=== PATIENT | male | born 1990 | race African-American/Black ===

== ENCOUNTER 2017-04-23 04:29 | Inpatient (IN) | payer MEDICAID, OTHER ==
--- NOTE | 2017-04-23 06:21 | C.PDOC ---
History Of Present Illness 26 year old male presents to the ER after he was rushing down the stairs and slipped causing him to jump down the remaining 3 steps. Patient is now complaining of bilateral ankle pain, denies weakness or numbness. Time Seen by Provider: 04/23/17 06:05 Chief Complaint (Nursing): Lower Extremity Problem/Injury History Per: Patient History/Exam Limitations: no limitations Onset/Duration Of Symptoms: Hrs Current Symptoms Are (Timing): Still Present Recent travel outside of the [place]: No - Ankle/Foot Description Of Injury: Fell Past Medical History Reviewed: Historical Data, Nursing Documentation, Vital Signs Vital Signs: Last Vital Signs Temp 99.2 F 04/23/17 05:34 Pulse 72 04/23/17 05:34 Resp 18 04/23/17 05:34 BP 121/70 04/23/17 05:34 Pulse Ox 100 04/23/17 07:12 - Medical History PMH: No Chronic Diseases Surgical History: No Surg Hx Family History: States: Unknown Family Hx - Social History Hx Alcohol Use: No Hx Substance Use: No - Immunization History Hx Tetanus Toxoid Vaccination: No Hx Influenza Vaccination: No Hx Pneumococcal Vaccination: No Review Of Systems Musculoskeletal: Positive for: Foot Pain Neurological: Negative for: Weakness, Numbness Physical Exam - Physical Exam Appears: Non-toxic, No Acute Distress Skin: Normal Color, Warm, Dry Head: Atraumatic, Normacephalic Back: No Vertebral Tenderness (no lumbar midline tenderess) Extremity: Capillary Refill (<2 seconds), No Deformity, Other (Marked left abnd right lateral malleolus with swelling and tenderness. Swelling and tenderness to left medial heel with crepitus.) Extremity: Bilateral: Bony Point Tenderness (left and right lateral malleoli and heel), Unable To Bear Weight Pulses: Left Dorsalis Pedis: Normal, Right Dorsalis Pedis: Normal Neurological/Psych: Oriented x3, Normal Speech, Normal Motor, Normal Sensation, Other (No focal deficits) ED Course And Treatment O2 Sat by Pulse Oximetry: 100 (Room air) Pulse Ox Interpretation: Normal Medical Decision Making Medical Decision Making: Bilateral feet and bilateral ankle x-ray ordered. 650 pm xrays reviewed and pt appears to have bilateral calcaneal fractures. pt questioned again about mechanism; pt now sts he jumped from apporx 4-5 feet high and landed on both feet, did not hit head and has no back pain. ct bilateral feet ordered. Disposition - Disposition Disposition Time: 07:12 Condition: STABLE Forms: [facility] ([place]ese) - Clinical Impression Clinical Impression: Bilateral calcaneal fractures - Scribe Statement The provider has reviewed the documentation as recorded by the Scribe Olvin Chase All medical record entries made by the Scribe were at my direction and personally dictated by me. I have reviewed the chart and agree that the record accurately reflects my personal performance of the history, physical exam, medical decision making, and the department course for this patient. I have also personally directed, reviewed, and agree with the discharge instructions and disposition. Physician Patient Turnover Patient Signed Over To: Kenyatta Villarreal Handoff Comments: f/u le ct for calcaneal fx, podiatry consult, dispo accordingly
[2017-04-23 08:32] LABS: BASO # 0.1 K/uL (0.0-0.2); BASO % 0.4 % (0.0-2.0); EOS % 0.2 % (0.0-4.0); HEMATOCRIT 41.6 % (35.0-51.0); LYMPH # 0.8 K/uL (1.0-4.3); LYMPH % 5.6 % (20.0-40.0); MEAN CELL VOLUME 88.8 fL (80.0-94.0); MEAN CORPUSCULAR HEMOGLOBIN 30.1 pg (27.0-31.0); MEAN CORPUSCULAR HGB CONC 33.9 g/dL (33.0-37.0); MEAN PLATELET VOLUME 9.3 fL (7.2-11.7); MONO # 0.9 K/uL (0.0-0.8); MONO % 6.2 % (0.0-10.0); NRBC % 0.1 % (0.0-2.0); PLATELET COUNT 230 K/uL (130-400); RED CELL DISTRIBUTION WIDTH 12.9 % (11.5-14.5); WHITE BLOOD COUNT 14.6 K/uL (4.8-10.8)
--- NOTE | 2017-04-23 08:41 | CP.PCM.HP ---
<ChachoshelbiTamera tuckerTushar - Last Filed: 04/23/17 12:56> History of Present Illness - History of Present Illness History of Present Illness: CC: bilateral ankle pain HPI: Patient is a 26 year old with no past medical history, who presents to the ED with bilateral ankle pain and swelling. The patient reports he was with friends, rushing out of the house and as he was going down the stairs started to fall and landed on both feet. He reports he landed on both feet equally, and denies falling on any other body part. He reports he fell about 5-6 feet. His friends picked him him and took him back in the house. Patient took two Advil and then his friends drove him to the hospital. Currently the patient reports the pain is a 4-5/10 and that the Advil he took and the Tylenol he was given in the ED helped. Patient denies tingling and numbness in his feet, ankles, and lower extremities. Patient reports he can move his ankles, feet, and toes, but cannot stand due to the pain. Patient denies having chest pain, abdominal pain, shortness of breath, nausea, vomiting, fevers, headaches, dizziness, and leg pain above his ankles. PMHx: denies SurgHx: elbow fracture in kindergarten FamHx: father had "tooth cancer" SocHx: socially drinks (beer); smoke 3 cigarettes daily for 2 years; lives with friends in [place]; student Allergies: NKDA Medications: denies Present on Admission - Present on Admission Any Indicators Present on Admission: No Review of Systems - Constitutional Constitutional: absent: Fever, Headache - EENT Ears: absent: Dizziness - Cardiovascular Cardiovascular: absent: Chest Pain, Dyspnea, Lightheadedness, Palpitations - Respiratory Respiratory: absent: Cough, Dyspnea - Gastrointestinal Gastrointestinal: absent: Abdominal Pain, Constipation, Diarrhea, Nausea, Vomiting - Musculoskeletal Musculoskeletal: Joint Swelling (bilateral ankle), Limited Range of Motion ( cannot bear weight; can move toes and LE). absent: Numbness, Radiating Pain into Limb, Tingling - Integumentary Integumentary: Swelling Additional comments: Swelling bilateral ankles; no open lesions, unusual bruising - Neurological Neurological: Abnormal Gait (unable to bear weight). absent: Dizziness, Numbness, Headaches, Tingling, Weakness Past Patient History - Past Social History Smoking Status: Never Smoked - PSYCHIATRIC Hx Substance Use: No - SURGICAL HISTORY Hx Surgeries: No - ANESTHESIA Hx Anesthesia: No Meds Allergies/Adverse Reactions: Allergies Allergy/AdvReac Type Severity Reaction Status Date / Time No Known Allergies Allergy Unverified 04/23/17 05:36 Physical Exam - Constitutional Appears: No Acute Distress - Head Exam Head Exam: ATRAUMATIC, NORMAL INSPECTION - Eye Exam Eye Exam: EOMI, Normal appearance, PERRL - ENT Exam ENT Exam: Mucous Membranes Moist - Respiratory Exam Respiratory Exam: Clear to Auscultation Bilateral, NORMAL BREATHING PATTERN. absent: Rales, Rhonchi, Wheezes, Respiratory Distress - Cardiovascular Exam Cardiovascular Exam: REGULAR RHYTHM, +S1, +S2 - GI/Abdominal Exam GI & Abdominal Exam: Normal Bowel Sounds, Soft. absent: Distended, Firm, Guarding, Tenderness - Extremities Exam Extremities exam: Positive for: joint swelling, pedal edema, tenderness, pedal pulses present. Negative for: calf tenderness Additional comments: bilateral ankle swelling and ecchymosis noted; limited ROM of ankle 2/2 pain; Able to move toes; full ROM of LE - Neurological Exam Neurological exam: Alert, Oriented x3 - Psychiatric Exam Psychiatric exam: Normal Affect, Normal Mood - Skin Skin Exam: Dry, Normal Color, Warm Results - Vital Signs Recent Vital Signs: Last Vital Signs Temp 99.2 F 04/23/17 05:34 Pulse 72 04/23/17 05:34 Resp 18 04/23/17 05:34 BP 121/70 04/23/17 05:34 Pulse Ox 100 04/23/17 07:13 - Labs Result Diagrams: 04/23/17 08:25 04/23/17 08:25 Assessment & Plan (1) Bilateral calcaneal fractures Assessment and Plan: Foot xray: follow up official report Ankle xray: follow up official report LE CT: comminuted fractures of left and right calcanei, left more severe than right; surrounding soft tissue swelling. left than right ankle mortise intact Podiatry consulted- Dr. Naranjo; help appreciated * Plan tentatively for OR, as per podiatry Preop: * CXR: no acute infiltrates; nodular density of left upper lung field, could represent 1st rib artifact or tiny granuloma; suggests repeat in 2 months * EKG: follow up official report * PT 11.1; INR 1.0; PTT 26 * CBC: WBC 14.6; Hgb 14.1, Hct 41.6, Platelets 230 * CMP within normal limits Morphin 1mg IV Q6prn started for pain Status: Acute (2) Tobacco abuse Assessment and Plan: Discussed tobacco cessation at length. Nicoderm patch started. Status: Acute (3) Prophylactic measure Assessment and Plan: Anitcoagulation held at this time- plan to go to OR as per podiatry No SCDs- LE swelling Pepcid 20mg IV BID NPO- tentative plan for OR Fall precautions Status: Acute <Nasrin Ho V - Last Filed: 04/23/17 15:30> Results - Vital Signs Recent Vital Signs: Last Vital Signs Temp 98.2 F 04/23/17 11:30 Pulse 91 H 04/23/17 11:30 Resp 18 04/23/17 11:30 BP 105/59 L 04/23/17 11:30 Pulse Ox 98 04/23/17 11:30 - Labs Result Diagrams: 04/23/17 08:25 04/23/17 08:25 Labs: Laboratory Results - last 24 hr 04/23/17 04/23/17 04/23/17 08:25 08:25 08:25 WBC 14.6 H RBC 4.68 Hgb 14.1 Hct 41.6 MCV 88.8 MCH 30.1 MCHC 33.9 RDW 12.9 Plt Count 230 MPV 9.3 Neut % (Auto) 87.6 H Lymph % (Auto) 5.6 L [place] % (Auto) 6.2 Eos % (Auto) 0.2 Baso % (Auto) 0.4 Neut # 12.8 H Lymph # 0.8 L [place] # 0.9 H Eos # 0.0 Baso # 0.1 Neutrophils % (Manual) 89 H Band Neutrophils % 4 H Lymphocytes % (Manual) 2 L Reactive Lymphs % 1 H Monocytes % (Manual) 4 Platelet Estimate Normal RBC Morphology Normal PT 11.1 INR 1.0 APTT 26 Sodium 135 Potassium 3.6 Chloride 99 Carbon Dioxide 26 Anion Gap 13 BUN 7 L Creatinine 0.7 L Est GFR ( Amer) > 60 Est GFR (Non-Af Amer) > 60 Random Glucose 118 H Calcium 8.6 Total Bilirubin 0.8 AST 21 ALT 32 Alkaline Phosphatase 69 Total Protein 6.8 Albumin 4.4 Globulin 2.3 Albumin/Globulin Ratio 1.9 Attending/Attestation - Attestation I have personally seen and examined this patient.: Yes I have fully participated in the care of the patient.: Yes I have reviewed all pertinent clinical information: Yes Notes (Text): Patient seen, examined and case discussed with day-time resident. Patient see at bedside with two of his best friends. Patient's parents are in , he does not want to discuss his medical information with his parents who are attending his cousin's wedding starting today. Patient does not have any family in the local area. Patient defers to his best friend if anything emergent required. Patient denies acute complaints except for bilateral heel pain. On exam, when i checked his sensation and motor he exclaimed "fuck" making self-evident of his pain. Sensation intact, motor intact. Patient also reports he has been smoking for about 2 years about 3 cigarettes usually triggered by social function, advised strongly at bedside to quit. Denies other acute complaints. Discussed assessment and plan with day-time resident. Podiatry on the case. patient for possible OR later today/tonight or tomorrow per podiatry resident. Patient had EKG and Chest xray completed in the morning. Chest xray (04/23/17): no acute infiltrates. Nodular density left upper lung field could represent 1st rib artifact or tiny granuloma not excluded. Repeat radiographs in 2 months. EKG : NSR Discussed with ED Nurse, podiatry has made their rounds, NPO after midnight for surgery in the morning. Assessment/Plan (1) Bilateral calcaneal fractures Assessment and Plan: * Podiatry consulted- Dr. Naranjo; help appreciated * Foot xray: follow up official report * Ankle xray: follow up official report * LE CT: comminuted fractures of left and right calcanei, left more severe than right; surrounding soft tissue swelling. left than right ankle mortise intact * Plan tentatively for OR, as per podiatry Preop: * CXR: no acute infiltrates; nodular density of left upper lung field, could represent 1st rib artifact or tiny granuloma; suggests repeat in 2 months * EKG: follow up official report * PT 11.1; INR 1.0; PTT 26 * CBC: WBC 14.6; Hgb 14.1, Hct 41.6, Platelets 230 * CMP within normal limits * Morphine 1mg IV Q6prn started for pain * Hold chemical anticoagulation for possible OR Status: Acute (2) Tobacco abuse Assessment and Plan: * Discussed tobacco cessation at length. * Nicoderm patch started. Status: Acute (3) Leukocytosis Assessment and Plan: * Blood cultures X2 * UA and Urine culture * Likely inflammatory reaction given recent fractures Status: Acute (4) Prophylactic measure Assessment and Plan: * Anticoagulation held at this time- plan to go to OR as per podiatry * No SCDs- LE swelling * Pepcid 20mg IV BID * NPO- tentative plan for OR * Fall precautions Status: Acute
[2017-04-23 08:54] LABS: ALB/GLOB RATIO 1.9 (1.0-2.1); ALKALINE PHOSPHATASE 69 U/L (38-126); ALT/SGPT 32 U/L (21-72); AST/SGOT 21 U/L (17-59); BILIRUBIN,TOTAL 0.8 mg/dL (0.2-1.3); BLOOD UREA NITROGEN 7 mg/dL (9-20); CALCIUM 8.6 mg/dl (8.6-10.4); CARBON DIOXIDE 26 mmol/L (22-30); CHLORIDE 99 mmol/L (98-107); GFR AFRICAN-AMERICAN > 60; GLUCOSE,RANDOM 118 mg/dL (75-110); POTASSIUM 3.6 mmol/L (3.6-5.2); SODIUM 135 mmol/L (132-148); TOTAL PROTEIN 6.8 g/dL (6.3-8.3)
[2017-04-23 09:12] LABS: NEUTROPHIL 89 % (50-75); REACTIVE LYMPHOCYTES 1 % (0-0); TOTAL CELLS COUNTED 100
--- NOTE | 2017-04-23 10:50 | CT ---
PROCEDURE: CT scan of the right and left calcanei 04/23/2017 HISTORY: Evaluate for bilateral calcaneal fx COMPARISON: Comparison made with radiographs of both ankles and feet earlier same day. TECHNIQUE: Contiguous axial images of the both the right and left calcanei obtained. Coronal and sagittal reformats were generated. This CT exam was performed using one or more of the following dose reduction techniques: Automated exposure control, adjustment of the mA and/or kV according to patient size, and/or use of iterative reconstruction technique. Radiation dose. Total DLP = 573.34 mGy FINDINGS: BONES: Comminuted fractures of both calcanei a left more severe than the right. . Small intra-articular fracture fragments seen between the right talocalcaneal joint. . Right ankle mortise is intact. Made of a small Surrounding soft tissue swelling. No other acute displaced fracture nor dislocation. . . Joint spaces are relatively preserved. Incidental note made of a small bone island in the superomedial aspect of the left talus. LEFT HIP JOINT: Unremarkable. No dislocation. No degenerative changes. SOFT TISSUES: Unremarkable. IMPRESSION: There are comminuted fractures of the left and right calcanei on former more severe than latter as above. . Surrounding soft tissue swelling. No other fractures. Left than right ankle mortise intact.
[2017-04-23] MEDS ORDERED: Oxycodone/Acetaminophen 5/325 mg Tab PO STA (10:55)
[2017-04-23] MEDS ORDERED: Oxycodone/Acetaminophen 5/325 mg Tab ONE (11:08)
--- NOTE | 2017-04-23 11:18 | CP.PCM.CON ---
History of Present Illness - History of Present Illness History of Present Illness: 26 y/o male seen in ED after consultation for bilateral foot and ankle pain. Pt states he was rushing down a flight of stairs and thinks that he missed one, thus falling down the last few stairs and landing straight down on both feet. Pt states he immediately was unable to walk and felt extreme pain in both feet. Pt admits to taking Advil and then coming in to the ED. Pt denies F/C/N/V/CP/ SOB. Pt denies numbness or tingling in both feet but admits to a mild burning sensation in the left foot. Pt says the Advil and Tylenol he received in the emergency room have been helping with the pain but it still hurts at this time. PMH: denies PSH: All: NKDA Social: social EtOH; approx 3 cigs/day Review of Systems - Review of Systems All systems: reviewed and no additional remarkable complaints except (per HPI) Past Patient History - Past Social History Smoking Status: Never Smoked - PSYCHIATRIC Hx Substance Use: No - SURGICAL HISTORY Hx Surgeries: No - ANESTHESIA Hx Anesthesia: No Meds Allergies/Adverse Reactions: Allergies Allergy/AdvReac Type Severity Reaction Status Date / Time No Known Allergies Allergy Unverified 04/23/17 05:36 - Medications Medications: Current Medications Famotidine (Pepcid) 20 mg IVP Q12 HERMINIO Last Admin: 04/23/17 10:15 Dose: 20 mg Morphine Sulfate (Morphine) 1 mg IV Q6 PRN PRN Reason: Pain, severe (8-10) Nicotine (Nicoderm Cq) 1 patch TD DAILY HERMINIO Physical Exam - Constitutional Appears: Well, Non-toxic, No Acute Distress - Extremities Exam Additional comments: Lower extremity focused examination: Vasc: Dp/PT pulses palpable 2/4 B/L. Temperature gradient is warm to warm B/L. CFT < 3 sec to all digits. Pedal hair present. Non-pitting pedal edema noted to perimalleolar region and extending to dorsum of midfoot B/L. Derm: No fracture blisters, no ecchymosis, no open lesions, no clinical suspicion of infection Neuro: Protective sensation grossly intact B/L Ortho: Pt able to perform mild active ankle circumduction. Significant tenderness elicited upon active and passive ankle dorsiflexion and plantarflexion. Significant tenderness to palpation of bilateral heels. Pt able to wiggle toes without difficulty. - Neurological Exam Neurological exam: Alert, Oriented x3 - Psychiatric Exam Psychiatric exam: Normal Affect, Normal Mood Results - Vital Signs Recent Vital Signs: Last Vital Signs Temp 99.2 F 04/23/17 05:34 Pulse 72 04/23/17 05:34 Resp 18 04/23/17 05:34 BP 121/70 04/23/17 05:34 Pulse Ox 100 04/23/17 07:13 - Labs Result Diagrams: 04/23/17 08:25 04/23/17 08:25 Labs: Laboratory Results - last 24 hr 04/23/17 04/23/17 04/23/17 08:25 08:25 08:25 WBC 14.6 H RBC 4.68 Hgb 14.1 Hct 41.6 MCV 88.8 MCH 30.1 MCHC 33.9 RDW 12.9 Plt Count 230 MPV 9.3 Neut % (Auto) 87.6 H Lymph % (Auto) 5.6 L [place] % (Auto) 6.2 Eos % (Auto) 0.2 Baso % (Auto) 0.4 Neut # 12.8 H Lymph # 0.8 L [place] # 0.9 H Eos # 0.0 Baso # 0.1 Neutrophils % (Manual) 89 H Band Neutrophils % 4 H Lymphocytes % (Manual) 2 L Reactive Lymphs % 1 H Monocytes % (Manual) 4 Platelet Estimate Normal RBC Morphology Normal PT 11.1 INR 1.0 APTT 26 Sodium 135 Potassium 3.6 Chloride 99 Carbon Dioxide 26 Anion Gap 13 BUN 7 L Creatinine 0.7 L Est GFR ( Amer) > 60 Est GFR (Non-Af Amer) > 60 Random Glucose 118 H Calcium 8.6 Total Bilirubin 0.8 AST 21 ALT 32 Alkaline Phosphatase 69 Total Protein 6.8 Albumin 4.4 Globulin 2.3 Albumin/Globulin Ratio 1.9 Assessment & Plan - Assessment and Plan (Free Text) Assessment: 26 y/o male with bilateral comminuted calcaneal fractures secondary to trauma Plan: Pt seen and evaluated in ED Chart and vitals reviewed - afebrile, WBC 14.6 Discussed plan in detail with attending Dr. Naranjo X-rays of bilateral feet reviewed, reveal bilateral radiolucencies in calcaneus bone consistent with fracture Lower extremity CT reviewed- reveals bilateral comminuted calcaneal fractures, left worse than right Pt placed in bilateral posterior splints with Moore compressive dressing Pt informed of the severity of his injuries and the need for surgical intervention All risks and benefits of surgery explained and all questions and concerns addressed with patient Pt advised to keep splints clean, dry and intact and remain non weight-bearing to both lower extremities Pt to be admitted under his PCP, Dr. Paige Ryder Pt to go to OR tentatively Monday and for repair of bilateral fractures Medical optimization appreciated at this time Podiatry will continue to follow patient while on floors Pt's pain controlled with Percocet and Morphine prn per ED attending Thank you for this consult
--- NOTE | 2017-04-23 12:58 | RAD ---
PROCEDURE: CHEST RADIOGRAPH, 1 VIEW HISTORY: pre-op COMPARISON: None available. FINDINGS: LUNGS: No acute infiltrates. There is a vague nodular density seen in the upper lobe overlying the right anterior 1st rib which could represent 1st rib artifact. Possibility of a tiny granuloma not excluded. Follow-up radiographs at 2 month interval could be performed to assess stability. . Questionable minimal linear atelectasis and or scarring left mid to upper lung field Minimal linear left lung base associated with minimal subjacent tenting of the left lateral hemidiaphragm PLEURA: No pneumothorax or pleural fluid seen. CARDIOVASCULAR: Normal. OSSEOUS STRUCTURES: No significant abnormalities. VISUALIZED UPPER ABDOMEN: Normal. OTHER FINDINGS: None. IMPRESSION: No acute infiltrates. Nodular density left upper lung field could represent 1st rib artifact or a tiny granuloma not excluded. Repeat radiographs in 2 months could be performed to assess stability.
--- NOTE | 2017-04-23 13:10 | RAD ---
PROCEDURE: Bilateral ankles dated 04/23/2017. HISTORY: Deformity. COMPARISON: Comparison made with concurrent radiographs of the right and left feet TECHNIQUE: Three views of the right and left ankles performed. FINDINGS: The current study reveals comminuted fractures of the right and left calcanei and with surrounding soft tissue swelling. Right and left ankle mortise appear intact. No other fractures are identified so far as can be seen. IMPRESSION: Comminuted fractures of the right and left calcanei on with surrounding soft tissue swelling.
--- NOTE | 2017-04-23 13:12 | RAD ---
PROCEDURE: Bilateral feet radiographs 04/23/2017 Three standard views of the right and left feet performed. HISTORY: Heel pain. COMPARISON: Correlation made with concurrent radiographs of the right and left ankles. FINDINGS: The current study re- demonstrates comminuted fractures of the left and right calcanei with surrounding soft tissue swelling. No other fractures are identified. IMPRESSION: Comminuted fractures of the right and left calcanei E with surrounding soft tissue swelling.
[2017-04-23 15:57] LABS: URINE BILIRUBIN NEGATIVE (NEGATIVE); URINE BLOOD NEGATIVE (NEGATIVE); URINE COLOR Straw (YELLOW); URINE GLUCOSE (UA) 2+ mg/dL (Normal); URINE KETONE NEGATIVE (NEGATIVE); URINE LEUKOCYTE ESTERASE NEG Leu/uL (Negative); URINE PROTEIN NEGATIVE (NEGATIVE); URINE UROBILINOGEN NORMAL mg/dL (0.2-1.0)
--- NOTE | 2017-04-23 17:04 | CP.PCM.CON ---
Past Patient History - Past Social History Smoking Status: Never Smoked - PSYCHIATRIC Hx Substance Use: No - SURGICAL HISTORY Hx Surgeries: No - ANESTHESIA Hx Anesthesia: No Meds Allergies/Adverse Reactions: Allergies Allergy/AdvReac Type Severity Reaction Status Date / Time No Known Allergies Allergy Unverified 04/23/17 05:36 - Medications Medications: Current Medications Famotidine (Pepcid) 20 mg IVP Q12 HERMINIO Last Admin: 04/23/17 10:15 Dose: 20 mg Morphine Sulfate (Morphine) 1 mg IV Q6 PRN PRN Reason: Pain, severe (8-10) Last Admin: 04/23/17 11:37 Dose: 1 mg Nicotine (Nicoderm Cq) 1 patch TD DAILY HERMINIO Physical Exam - Constitutional Appears: Well - Head Exam Head Exam: ATRAUMATIC, NORMAL INSPECTION, NORMOCEPHALIC - Eye Exam Eye Exam: EOMI, Normal appearance, PERRL Pupil Exam: NORMAL ACCOMODATION, PERRL - ENT Exam ENT Exam: Mucous Membranes Moist, Normal Exam - Neck Exam Neck exam: Positive for: Normal Inspection - Respiratory Exam Respiratory Exam: Decreased Breath Sounds - Cardiovascular Exam Cardiovascular Exam: REGULAR RHYTHM, +S1, +S2 - GI/Abdominal Exam GI & Abdominal Exam: Diminished Bowel Sounds, Soft - Rectal Exam Rectal Exam: Deferred Results - Vital Signs Recent Vital Signs: Last Vital Signs Temp 98.2 F 04/23/17 16:16 Pulse 68 04/23/17 16:16 Resp 18 04/23/17 16:16 BP 119/72 04/23/17 16:16 Pulse Ox 99 04/23/17 16:16 - Labs Result Diagrams: 04/23/17 08:25 04/23/17 08:25 Labs: Laboratory Results - last 24 hr 04/23/17 04/23/17 04/23/17 08:25 08:25 08:25 WBC 14.6 H RBC 4.68 Hgb 14.1 Hct 41.6 MCV 88.8 MCH 30.1 MCHC 33.9 RDW 12.9 Plt Count 230 MPV 9.3 Neut % (Auto) 87.6 H Lymph % (Auto) 5.6 L [place] % (Auto) 6.2 Eos % (Auto) 0.2 Baso % (Auto) 0.4 Neut # 12.8 H Lymph # 0.8 L [place] # 0.9 H Eos # 0.0 Baso # 0.1 Neutrophils % (Manual) 89 H Band Neutrophils % 4 H Lymphocytes % (Manual) 2 L Reactive Lymphs % 1 H Monocytes % (Manual) 4 Platelet Estimate Normal RBC Morphology Normal PT 11.1 INR 1.0 APTT 26 Sodium 135 Potassium 3.6 Chloride 99 Carbon Dioxide 26 Anion Gap 13 BUN 7 L Creatinine 0.7 L Est GFR ( Amer) > 60 Est GFR (Non-Af Amer) > 60 Random Glucose 118 H Calcium 8.6 Total Bilirubin 0.8 AST 21 ALT 32 Alkaline Phosphatase 69 Total Protein 6.8 Albumin 4.4 Globulin 2.3 Albumin/Globulin Ratio 1.9 Urine Color Urine Clarity Urine pH Ur Specific [place] Urine Protein Urine Glucose (UA) Urine Ketones Urine Blood Urine Nitrate Urine Bilirubin Urine Urobilinogen Ur Leukocyte Esterase 04/23/17 15:41 WBC RBC Hgb Hct MCV MCH MCHC RDW Plt Count MPV Neut % (Auto) Lymph % (Auto) [place] % (Auto) Eos % (Auto) Baso % (Auto) Neut # Lymph # [place] # Eos # Baso # Neutrophils % (Manual) Band Neutrophils % Lymphocytes % (Manual) Reactive Lymphs % Monocytes % (Manual) Platelet Estimate RBC Morphology PT INR APTT Sodium Potassium Chloride Carbon Dioxide Anion Gap BUN Creatinine Est GFR ( Amer) Est GFR (Non-Af Amer) Random Glucose Calcium Total Bilirubin AST ALT Alkaline Phosphatase Total Protein Albumin Globulin Albumin/Globulin Ratio Urine Color Straw Urine Clarity Clear Urine pH 7.0 Ur Specific [place] 1.008 Urine Protein Negative Urine Glucose (UA) 2+ H Urine Ketones Negative Urine Blood Negative Urine Nitrate Negative Urine Bilirubin Negative Urine Urobilinogen Normal Ur Leukocyte Esterase Neg
[2017-04-24 08:15] LABS: BASO % 0.4 % (0.0-2.0); EOS % 0.4 % (0.0-4.0); HEMATOCRIT 39.5 % (35.0-51.0); LYMPH # 0.7 K/uL (1.0-4.3); LYMPH % 7.8 % (20.0-40.0); MEAN CORPUSCULAR HGB CONC 34.9 g/dL (33.0-37.0); MEAN PLATELET VOLUME 9.5 fL (7.2-11.7); MONO # 1.2 K/uL (0.0-0.8); MONO % 13.3 % (0.0-10.0); PLATELET COUNT 213 K/uL (130-400); RED CELL DISTRIBUTION WIDTH 12.7 % (11.5-14.5); WHITE BLOOD COUNT 9.4 K/uL (4.8-10.8)
[2017-04-24] MEDS ORDERED: Enoxaparin 40 mg Syringe SC ONE (08:40)
[2017-04-24 08:43] LABS: ALB/GLOB RATIO 1.2 (1.0-2.1); ALKALINE PHOSPHATASE 70 U/L (38-126); ALT/SGPT 28 U/L (21-72); AST/SGOT 20 U/L (17-59); BLOOD UREA NITROGEN 7 mg/dL (9-20); CALCIUM 8.5 mg/dl (8.6-10.4); CARBON DIOXIDE 25 mmol/L (22-30); CHLORIDE 97 mmol/L (98-107); GFR AFRICAN-AMERICAN > 60; GLUCOSE,RANDOM 126 mg/dL (75-110); POTASSIUM 3.9 mmol/L (3.6-5.2); SODIUM 132 mmol/L (132-148); TOTAL PROTEIN 7.6 g/dL (6.3-8.3)
[2017-04-24 08:55] LABS: EOSINOPHIL 3 % (0-4); NEUTROPHIL 75 % (50-75); TOTAL CELLS COUNTED 100
--- NOTE | 2017-04-24 09:52 | CP.PCM.PN ---
<Tamera Le - Last Filed: 04/24/17 13:40> Subjective - Date & Time of Evaluation Date of Evaluation: 04/24/17 Time of Evaluation: 09:52 - Subjective Subjective: Medicine Progress Note for Dr. Ryder Patient was seen and examined at bedside in no acute distress. Patient's friend , Bello, at bedside. Patient reports he has a lot of pain in his lower extremities bilaterally. He reports his casts are uncomfortable and makes the pain worse. Patient denies having chest pain, shortness of breath, abdominal pain, nausea, vomiting, fevers, and headaches. Patient is NPO for possible OR today. Objective - Vital Signs/Intake and Output Vital Signs (last 24 hours): Temp Pulse Resp BP Pulse Ox 98.5 F 82 20 144/80 98 04/24/17 00:00 04/24/17 00:00 04/24/17 00:00 04/24/17 00:00 04/24/17 00:00 - Medications Medications: Current Medications Docusate Sodium (Colace) 100 mg PO BID [facility] Famotidine (Pepcid) 20 mg IVP Q12 [facility] Last Admin: 04/23/17 22:04 Dose: 20 mg Ketorolac Tromethamine (Toradol) 15 mg IVP Q6 PRN PRN Reason: Pain, moderate (4-7) Ketorolac Tromethamine (Toradol) 30 mg IVP Q6 PRN PRN Reason: Pain, severe (8-10) Nicotine (Nicoderm Cq) 1 patch TD DAILY [facility] Last Admin: 04/23/17 22:03 Dose: Not Given Pneumococcal Polyvalent Vaccine (Pneumovax 23 Vaccine) 0.5 ml IM .ONCE ONE Stop: 04/25/17 10:01 - Labs Labs: 04/24/17 08:00 04/24/17 08:00 PT 11.1 SECONDS (9.7-12.2) 04/23/17 08:25 INR 1.0 04/23/17 08:25 APTT 26 SECONDS (21-34) 04/23/17 08:25 - Constitutional Appears: No Acute Distress - Head Exam Head Exam: ATRAUMATIC, NORMAL INSPECTION - Eye Exam Eye Exam: EOMI, Normal appearance - ENT Exam ENT Exam: Mucous Membranes Moist - Respiratory Exam Respiratory Exam: Clear to Ausculation Bilateral, NORMAL BREATHING PATTERN. absent: Rales, Rhonchi, Wheezes, Respiratory Distress - Cardiovascular Exam Cardiovascular Exam: REGULAR RHYTHM, +S1, +S2 - GI/Abdominal Exam GI & Abdominal Exam: Soft, Normal Bowel Sounds. absent: Distended, Firm, Guarding, Tenderness - Extremities Exam Extremities Exam: Tenderness (B/L; casts with michelle wrap from knee down to toes b/ l. Toes exposed; patient able to move toes; sensation intact b/l) - Neurological Exam Neurological Exam: Alert, Awake, Oriented x3 - Psychiatric Exam Psychiatric exam: Normal Affect, Normal Mood - Skin Skin Exam: Dry, Intact, Normal Color, Warm Assessment and Plan (1) Bilateral calcaneal fractures Status: Acute (2) Tobacco abuse Status: Acute (3) Prophylactic measure Status: Acute - Assessment and Plan (Free Text) Plan: Assessment & Plan (1) Bilateral calcaneal fractures Assessment and Plan: Foot xray: follow up official report Ankle xray: follow up official report Given one dose of Lovenox on 04/24/17. LE CT: comminuted fractures of left and right calcanei, left more severe than right; surrounding soft tissue swelling. left than right ankle mortise intact Podiatry consulted- Dr. Naranjo; help appreciated * Patient is scheduled to go to OR on Monday for one and for the other. * 04/24- On regular diet, but NPO after MN Preop: * CXR: no acute infiltrates; nodular density of left upper lung field, could represent 1st rib artifact or tiny granuloma; suggests repeat in 2 months * EKG: follow up official report * PT 11.1; INR 1.0; PTT 26 * CBC: WBC 14.6; Hgb 14.1, Hct 41.6, Platelets 230 * CMP within normal limits Pain Management: * Discontinued Morphine 1mg IV Q6prn started for pain * Tylenol 650mg PO Q6 PRN (mild pain) * Toradol 15mg Q6 PRN (moderate pain) * Toradol 30mg Q6 PRN (severe pain) Status: Acute (2) Tobacco abuse Assessment and Plan: * Discussed tobacco cessation at length. * Nicoderm patch started. Status: Acute (3) Prophylactic measure Assessment and Plan: * Anitcoagulation held at this time- plan to go to OR as per podiatry * Was given one dose of Lovenox on 04/24/17 * No SCDs- LE swelling * Pepcid 20mg IV BID * NPO after MN- OR on Monday04/24/17 * Fall precautions Status: Acute <Vern Ryder - Last Filed: 04/24/17 20:47> Objective - Vital Signs/Intake and Output Vital Signs (last 24 hours): Temp Pulse Resp BP Pulse Ox 98.0 F 90 20 143/91 H 99 04/24/17 15:00 04/24/17 15:00 04/24/17 15:00 04/24/17 15:00 04/24/17 15:00 Intake and Output: 04/24/17 04/25/17 18:59 06:59 Intake Total 480 Output Total 1000 Balance -520 - Medications Medications: Current Medications Acetaminophen (Tylenol 325mg Tab) 650 mg PO Q6 PRN PRN Reason: Pain, Mild (1-3) Docusate Sodium (Colace) 100 mg PO BID [facility] Last Admin: 04/24/17 17:30 Dose: 100 mg Famotidine (Pepcid) 20 mg IVP Q12 [facility] Last Admin: 04/24/17 10:27 Dose: 20 mg Ketorolac Tromethamine (Toradol) 15 mg IVP Q6 PRN PRN Reason: Pain, moderate (4-7) Last Admin: 04/24/17 20:22 Dose: 15 mg Ketorolac Tromethamine (Toradol) 30 mg IVP Q6 PRN PRN Reason: Pain, severe (8-10) Nicotine (Nicoderm Cq) 1 patch TD DAILY [facility] Last Admin: 04/24/17 10:28 Dose: Not Given Pneumococcal Polyvalent Vaccine (Pneumovax 23 Vaccine) 0.5 ml IM .ONCE ONE Stop: 04/25/17 10:01 - Labs Labs: 04/24/17 08:00 04/24/17 08:00 PT 11.1 SECONDS (9.7-12.2) 04/23/17 08:25 INR 1.0 04/23/17 08:25 APTT 26 SECONDS (21-34) 04/23/17 08:25 Attending/Attestation - Attestation I have personally seen and examined this patient.: Yes I have fully participated in the care of the patient.: Yes I have reviewed all pertinent clinical information, including history, physical exam and plan: Yes Notes (Text): 04/24/17 20:47 Patient was seen and examined at 8:30 AM 04/24/17 360 A Exam, Assessment and Plan were thoroughly gone over with the resident. Vern Ryder D.O.
--- NOTE | 2017-04-24 17:59 | CARD ---
APPROVED REPORT EKG Measurement Heart [id number] <Conclusion> Normal sinus rhythm Biatrial enlargement Abnormal ECG
--- NOTE | 2017-04-24 19:13 | CP.PCM.PN ---
Subjective - Date & Time of Evaluation Date of Evaluation: 04/24/17 Time of Evaluation: 16:10 - Subjective Subjective: 26 y/o male seen at bedside for bilateral calcaneal fractures, with attending, Dr. Naranjo present. Pt is in no acute distress and states pain is well contolled bilaterally. Pt states he is compliant with strict bedrest and is making no attempts to ambulate due to extent of injuries. Pain is will controlled at this time. Pt denies F/C/N/V/CP/SOB. Pt denies numbness or tingling in both feet. Pt is in good spirits during interview. Objective - Vital Signs/Intake and Output Vital Signs (last 24 hours): Temp Pulse Resp BP Pulse Ox 98.0 F 90 20 143/91 H 99 04/24/17 15:00 04/24/17 15:00 04/24/17 15:00 04/24/17 15:00 04/24/17 15:00 Intake and Output: 04/24/17 04/25/17 18:59 06:59 Intake Total 480 Output Total 1000 Balance -520 - Medications Medications: Current Medications Acetaminophen (Tylenol 325mg Tab) 650 mg PO Q6 PRN PRN Reason: Pain, Mild (1-3) Docusate Sodium (Colace) 100 mg PO BID [facility] Last Admin: 04/24/17 17:30 Dose: 100 mg Famotidine (Pepcid) 20 mg IVP Q12 [facility] Last Admin: 04/24/17 10:27 Dose: 20 mg Ketorolac Tromethamine (Toradol) 15 mg IVP Q6 PRN PRN Reason: Pain, moderate (4-7) Last Admin: 04/24/17 14:10 Dose: 15 mg Ketorolac Tromethamine (Toradol) 30 mg IVP Q6 PRN PRN Reason: Pain, severe (8-10) Nicotine (Nicoderm Cq) 1 patch TD DAILY [facility] Last Admin: 04/24/17 10:28 Dose: Not Given Pneumococcal Polyvalent Vaccine (Pneumovax 23 Vaccine) 0.5 ml IM .ONCE ONE Stop: 04/25/17 10:01 - Labs Labs: 04/24/17 08:00 04/24/17 08:00 PT 11.1 SECONDS (9.7-12.2) 11/26/17 08:25 INR 1.0 04/23/17 08:25 APTT 26 SECONDS (21-34) 04/23/17 08:25 - Constitutional Appears: Well, Non-toxic, No Acute Distress - Extremities Exam Additional comments: Lower extremity focused examination: Posterior splint intact bilaterally, absent sanginous strikethough. Neuro-vascular status intact to level of digits bilaterally. Pt able to move toes to verbal prompting. - Neurological Exam Neurological Exam: Alert, Awake, Oriented x3 - Psychiatric Exam Psychiatric exam: Normal Affect, Normal Mood Assessment and Plan - Assessment and Plan (Free Text) Assessment: 26 y/o male with bilateral comminuted calcaneal fractures secondary to trauma Plan: Pt seen and evaluated, with attending Dr. Naranjo present. Discussed CT findings and extent of traumatic damage bilaterally. Left side noted to be more comminuted and with more intra-articular damage. Discussed with patient increased likelihood of post-traumatic arthritis bilaterally, left increased likelihood over right. Discussed conservative and surgical treatment options. Pt opted for surgical intervention. Medical decision made to stage the procedure over 2 operative visits, 1st stage to address left fracture, with 2nd stage and addressing of right to occur in 2+ days time. Pt agrees with surgical plan and is aware or risks, benefits, and complications which were explained to him. Pt has no reservations, and wished to proceed with indicated surgical intervention. Pt to be NPO this evening at midnight To OR tomorrow morning(04/25/17) for left calcaneal ORIF. Pt to remain on bedrest, with posterior splints intact. - To address physical therapy plan post-operatively. Podiatry will continue to follow while inhouse.
[2017-04-25 06:12] LABS: BASO % 0.6 % (0.0-2.0); EOS # 0.1 K/uL (0.0-0.7); EOS % 1.2 % (0.0-4.0); LYMPH # 1.1 K/uL (1.0-4.3); LYMPH % 13.3 % (20.0-40.0); MEAN CELL VOLUME 89.7 fL (80.0-94.0); MEAN CORPUSCULAR HEMOGLOBIN 30.6 pg (27.0-31.0); MEAN CORPUSCULAR HGB CONC 34.2 g/dL (33.0-37.0); MEAN PLATELET VOLUME 9.7 fL (7.2-11.7); MONO # 0.9 K/uL (0.0-0.8); MONO % 11.2 % (0.0-10.0); RED CELL DISTRIBUTION WIDTH 12.6 % (11.5-14.5); WHITE BLOOD COUNT 8.1 K/uL (4.8-10.8)
[2017-04-25 06:29] LABS: ALB/GLOB RATIO 1.7 (1.0-2.1); ALKALINE PHOSPHATASE 62 U/L (38-126); ALT/SGPT 28 U/L (21-72); AST/SGOT 19 U/L (17-59); BILIRUBIN,TOTAL 1.2 mg/dL (0.2-1.3); BLOOD UREA NITROGEN 8 mg/dL (9-20); CALCIUM 8.6 mg/dl (8.6-10.4); CARBON DIOXIDE 26 mmol/L (22-30); CHLORIDE 98 mmol/L (98-107); GFR AFRICAN-AMERICAN > 60; GLUCOSE,RANDOM 112 mg/dL (75-110); SODIUM 133 mmol/L (132-148); TOTAL PROTEIN 6.8 g/dL (6.3-8.3)
[2017-04-25] MEDS ORDERED: Midazolam 2 MG/2 ML VIAL ONE (07:41)
[2017-04-25] MEDS ORDERED: Propofol 10 mg/ml Inj (20 ML) ONE (07:41)
[2017-04-25] MEDS ORDERED: ceFAZolin IV 1 gm in Dextrose 1 GM/50 ML BAG IVPB ONE (07:43)
[2017-04-25] MEDS ORDERED: Bupivacaine 0.5% Inj(30mL) ONE ×2 (07:44→13:10)
[2017-04-25] MEDS ORDERED: Lactated Ringer's 1,000 ML IV ONE ×3 (08:03→11:45)
[2017-04-25] MEDS ORDERED: Phenylephrine 10 mg/ml Inj ONE (09:05)
[2017-04-25] MEDS ORDERED: Rocuronium 10 mg/ml (5 ml) ONE ×2 (09:06→11:54)
--- NOTE | 2017-04-25 09:50 | CP.PCM.PN ---
<Tamera Le - Last Filed: 04/25/17 13:48> Subjective - Date & Time of Evaluation Date of Evaluation: 04/25/17 Time of Evaluation: 09:47 - Subjective Subjective: Medicine Progress note for Dr. Ryder Patient was seen and examined at bedside in no acute distress. Patient was getting ready for transfer to the OR. Patient the pain is manageable if he stays immobile and states he did not take pain medication overnight. Patient denies having chest pain, abdominal pain, nausea, vomiting, fevers, headaches, diarrhea, and constipation. Objective - Vital Signs/Intake and Output Vital Signs (last 24 hours): Temp Pulse Resp BP Pulse Ox 98.6 F 97 H 20 111/75 98 04/25/17 05:30 04/25/17 05:30 04/25/17 05:30 04/25/17 05:30 04/25/17 05:30 Intake and Output: 04/25/17 04/25/17 06:59 18:59 Intake Total 250 Output Total 800 Balance -550 - Medications Medications: Current Medications Acetaminophen (Tylenol 325mg Tab) 650 mg PO Q6 PRN PRN Reason: Pain, Mild (1-3) Docusate Sodium (Colace) 100 mg PO BID [facility] Last Admin: 04/24/17 17:30 Dose: 100 mg Famotidine (Pepcid) 20 mg IVP Q12 [facility] Last Admin: 04/24/17 21:20 Dose: 20 mg Ketorolac Tromethamine (Toradol) 15 mg IVP Q6 PRN PRN Reason: Pain, moderate (4-7) Last Admin: 04/24/17 20:22 Dose: 15 mg Ketorolac Tromethamine (Toradol) 30 mg IVP Q6 PRN PRN Reason: Pain, severe (8-10) Nicotine (Nicoderm Cq) 1 patch TD DAILY [facility] Last Admin: 04/24/17 10:28 Dose: Not Given Pneumococcal Polyvalent Vaccine (Pneumovax 23 Vaccine) 0.5 ml IM .ONCE ONE Stop: 04/25/17 10:01 - Labs Labs: 04/25/17 06:09 04/25/17 06:09 PT 11.1 SECONDS (9.7-12.2) 04/23/17 08:25 INR 1.0 04/23/17 08:25 APTT 26 SECONDS (21-34) 04/23/17 08:25 - Additional Findings Additional findings: - Constitutional Appears: No Acute Distress - Head Exam Head Exam: ATRAUMATIC, NORMAL INSPECTION - Eye Exam Eye Exam: EOMI, Normal appearance - ENT Exam ENT Exam: Mucous Membranes Moist - Respiratory Exam Respiratory Exam: Clear to Ausculation Bilateral, NORMAL BREATHING PATTERN. absent: Rales, Rhonchi, Wheezes, Respiratory Distress - Cardiovascular Exam Cardiovascular Exam: REGULAR RHYTHM, +S1, +S2 - GI/Abdominal Exam GI & Abdominal Exam: Soft, Normal Bowel Sounds. absent: Distended, Firm, Guarding, Tenderness - Extremities Exam Extremities Exam: Tenderness (B/L; casts with michelle wrap from knee down to toes b/ l. Toes exposed; patient able to move toes; sensation intact b/l) - Neurological Exam Neurological Exam: Alert, Awake, Oriented x3 - Psychiatric Exam Psychiatric exam: Normal Affect, Normal Mood - Skin Skin Exam: Dry, Intact, Normal Color, Warm Assessment and Plan (1) Bilateral calcaneal fractures Status: Acute (2) Tobacco abuse Status: Acute (3) Prophylactic measure Status: Acute - Assessment and Plan (Free Text) Plan: Assessment & Plan (1) Bilateral calcaneal fractures Assessment and Plan: Foot xray: follow up official report Ankle xray: follow up official report Given one dose of Lovenox on 04/24/17. LE CT: comminuted fractures of left and right calcanei, left more severe than right; surrounding soft tissue swelling. left than right ankle mortise intact Podiatry consulted- Dr. Naranjo; help appreciated * Patient went to OR today, Monday for operation on the left foot and is scheduled for the OR on for the right foot. * 04/24- On regular diet, but NPO after MN Preop: * CXR: no acute infiltrates; nodular density of left upper lung field, could represent 1st rib artifact or tiny granuloma; suggests repeat in 2 months * EKG: follow up official report * PT 11.1; INR 1.0; PTT 26 * CBC: WBC 14.6; Hgb 14.1, Hct 41.6, Platelets 230 * CMP within normal limits Pain Management: * Discontinued Morphine 1mg IV Q6prn started for pain * Tylenol 650mg PO Q6 PRN (mild pain) * Toradol 15mg Q6 PRN (moderate pain) * Toradol 30mg Q6 PRN (severe pain) Status: Acute (2) Tobacco abuse Assessment and Plan: * Discussed tobacco cessation at length. * Nicoderm patch started. Status: Acute (3) Prophylactic measure Assessment and Plan: * Anitcoagulation held at this time- plan to go to OR as per podiatry * Was given one dose of Lovenox on 04/24/17 * Will give one more dose of Lovenox on 04/26/17 in the morning * No SCDs- LE swelling * Pepcid 20mg IV BID * Regular diet * Plan for NPO after MN for OR on 04/27/17 * Fall precautions Status: Acute <Vern Ryder - Last Filed: 04/25/17 18:59> Objective - Vital Signs/Intake and Output Vital Signs (last 24 hours): Temp Pulse Resp BP Pulse Ox 97.9 F 87 20 108/71 99 04/25/17 15:00 04/25/17 15:00 04/25/17 15:00 04/25/17 15:00 04/25/17 15:00 Intake and Output: 04/25/17 04/25/17 06:59 18:59 Intake Total 250 Output Total 800 Balance -550 - Medications Medications: Current Medications Acetaminophen (Tylenol 325mg Tab) 650 mg PO Q6 PRN PRN Reason: Pain, Mild (1-3) Docusate Sodium (Colace) 100 mg PO BID [facility] Last Admin: 04/25/17 17:37 Dose: 100 mg Enoxaparin Sodium (Lovenox) 40 mg SC ONCE ONE Stop: 04/26/17 08:01 Famotidine (Pepcid) 20 mg IVP Q12 [facility] Last Admin: 04/25/17 17:36 Dose: 20 mg Cefazolin Sodium (Ancef) 1 gm in 50 mls @ 100 mls/hr IVPB Q8H [facility] Stop: 04/26/17 00:29 Ketorolac Tromethamine (Toradol) 15 mg IVP Q6 PRN PRN Reason: Pain, moderate (4-7) Last Admin: 04/24/17 20:22 Dose: 15 mg Ketorolac Tromethamine (Toradol) 30 mg IVP Q6 PRN PRN Reason: Pain, severe (8-10) Last Admin: 04/25/17 18:57 Dose: 30 mg Nicotine (Nicoderm Cq) 1 patch TD DAILY [facility] Last Admin: 04/25/17 09:48 Dose: Not Given - Labs Labs: 04/25/17 06:09 04/25/17 06:09 PT 11.1 SECONDS (9.7-12.2) 04/23/17 08:25 INR 1.0 04/23/17 08:25 APTT 26 SECONDS (21-34) 04/23/17 08:25 Attending/Attestation - Attestation I have personally seen and examined this patient.: Yes I have fully participated in the care of the patient.: Yes I have reviewed all pertinent clinical information, including history, physical exam and plan: Yes Notes (Text): 04/25/17 18:59 Patient was seen and examined at 7:30 AM 04/25/17 360 A Exam, Assessment and Plan were thoroughly gone over with the resident. Vern Ryder D.O.
[2017-04-25] MEDS ORDERED: Pneumococcal 23-Valent Vaccine IM ONE (10:00)
[2017-04-25] MEDS ORDERED: Influenza Vaccine 60 mcg/0.5 mL SYR (4YR UP) IM ONE (10:00)
[2017-04-25] MEDS ORDERED: Bupivacaine HCl 0.5% PF (10 ml) Inj ONE (11:15)
[2017-04-25] MEDS ORDERED: Neostigmine Methylsulfate 3mg/3ml Syringe IV ONE (12:03)
--- NOTE | 2017-04-25 12:43 | PCM.SURG1 ---
Surgeon's Initial Post Op Note - Surgeon's Notes Surgeon: Dr. Naranjo Outreach Representative: Mya Kelley PGY-3, Supa Sorensen PGY-3 Type of Anesthesia: General Endo Anesthesia Administered By: Dr. Ballard Pre-Operative Diagnosis: Left calcaneal fracture Operative Findings: see dictation Post-Operative Diagnosis: same Operation Performed: Left calcaneus ORIF Specimen/Specimens Removed: none Estimated Blood Loss: EBL {In ML}: 80 Blood Products Given: N/A Drains Used: No Drains Post-Op Condition: Good Date of Surgery/Procedure: 04/25/17 Time of Surgery/Procedure: 08:00
[2017-04-25] MEDS: HYDROmorphone 0.5 mg/0.5 ml ISec IVP PRN ×2 (13:12→13:30)
--- NOTE | 2017-04-25 13:12 | RAD ---
PROCEDURE: Left Foot Radiographs. HISTORY: s/p left calcaneal ORIF COMPARISON: None. FINDINGS: Overlying cast limits evaluation of fine bony detail. The patient is status post open reduction internal plate and screw fixation of the previously described comminuted calcaneal fracture. Osseous structures appear in good alignment. No new fractures or other significant interval changes identified. IMPRESSION: Status post open reduction internal fixation of the previously described comminuted calcaneal fracture.
[2017-04-25] MEDS ORDERED: HYDROmorphone 1 mg/ml ISec ONE (13:30)
--- NOTE | 2017-04-25 13:50 | PCM.ANESB2 ---
Popliteal Nerve Block - Popliteal Nerve Block Date of Procedure: 04/25/17 Anesthesiologist: tran Pre-Procedure Diagnosis: left calcaneal fx Post-Procedure Diagnosis: left calcaneal fx Procedure Performed: Popliteal Nerve Block Left - Procedure Popliteal Nerve Block: This procedure was explained to the patient that it is for post-operative pain management. Consent was obtained after a thorough discussion with the patient regarding the benefits and possible complications of local anesthetic block of the sciatic nerve at the popliteal level. The patient was brought to the operating room and standard monitors are applied. Time-out was held with the circulating nurse to confirm the correct surgery and the appropriate block. After applying oxygen by nasal cannula and administering IV Sedation, patient's operative leg was gently raised and supported and the groove in between the biceps femoris and vastus lateralis muscles was carefully palpated. The skin approximately 8cm above the popliteal crease was then marked. The ultrasound transducer was then applied to the posterior thigh approximately 8cm above the popliteal crease in the transverse plane and the sciatic nerve before its division was visualized lateral to the popliteal artery and in between the bicep femoris and semimembranosus/semitendinosus muscles. After identification, the lateral portion of the thigh was prepped with Betadine solution three times and Lidocaine 1% was injected subcutaneously for topical anesthesia. At this point, a # 21 gauge Stimuplex insulated 4 inch needle was inserted into pre-marked area and advanced in a perpendicular direction. The needle was inserted above the ultrasound transducer in-plane towards the sciatic nerve in a [id number] direction. Needle advancement was performed carefully under direct ultrasound visualization. After repeated negative aspiration, _5____cc of ___.5__ % _bupivicaine was injected and this was flowed with __ _15___ cc of __.5____% ___bupvicaine . Under ultrasound guidance the local anesthetics were observed surrounding sciatic nerve . The needle was removed intact and sterile dressing was applied. The patient tolerated the popliteal nerve block well with stable vital signs and was subsequently prepared for the surgery.
[2017-04-25] MEDS: ceFAZolin 1 gm FROZEN Premix 1 GM/50 ML ML IVPB SCH (16:00)
[2017-04-26] MEDS: ceFAZolin 1 gm FROZEN Premix 1 GM/50 ML ML IVPB SCH (00:09)
[2017-04-26 07:24] LABS: MONO # 1.4 K/uL (0.0-0.8)
[2017-04-26 07:32] LABS: BASO % 0.5 % (0.0-2.0); EOS % 0.5 % (0.0-4.0); HEMATOCRIT 33.3 % (35.0-51.0); LYMPH % 11.5 % (20.0-40.0); MEAN CELL VOLUME 90.3 fL (80.0-94.0); MEAN CORPUSCULAR HEMOGLOBIN 31.3 pg (27.0-31.0); MEAN CORPUSCULAR HGB CONC 34.7 g/dL (33.0-37.0); MEAN PLATELET VOLUME 9.9 fL (7.2-11.7); MONO % 16.1 % (0.0-10.0); NRBC % 0.2 % (0.0-2.0); RED CELL DISTRIBUTION WIDTH 12.5 % (11.5-14.5); WHITE BLOOD COUNT 8.4 K/uL (4.8-10.8)
[2017-04-26 07:39] LABS: ALB/GLOB RATIO 1.4 (1.0-2.1); ALKALINE PHOSPHATASE 56 U/L (38-126); ALT/SGPT 29 U/L (21-72); AST/SGOT 21 U/L (17-59); BILIRUBIN,TOTAL 1.1 mg/dL (0.2-1.3); BLOOD UREA NITROGEN 5 mg/dL (9-20); CALCIUM 7.9 mg/dl (8.6-10.4); CARBON DIOXIDE 22 mmol/L (22-30); CHLORIDE 99 mmol/L (98-107); GFR AFRICAN-AMERICAN > 60; GLUCOSE,RANDOM 111 mg/dL (75-110); POTASSIUM 3.4 mmol/L (3.6-5.2); SODIUM 133 mmol/L (132-148)
[2017-04-26] MEDS ORDERED: Enoxaparin 40 mg Syringe SC ONE (08:00)
--- NOTE | 2017-04-26 09:20 | OP ---
PROCEDURE DATE: 04/25/2017 SURGEON: Jana Naranjo DPM ASSISTANTS: Mya Kelley DPM, PGY-3 and Supa Sorensen DPM, PGY-3. PREOPERATIVE DIAGNOSIS: Left foot calcaneal fracture. POSTOPERATIVE DIAGNOSIS: Left foot calcaneal fracture. PROCEDURE: Left foot calcaneus open reduction and internal fixation. TYPE OF ANESTHESIA: General anesthesia with popliteal block. ANESTHESIOLOGIST: Dr. Morales. INDICATIONS: The patient is a 26-year-old male with the above-mentioned diagnosis. The patient has exhausted conservative treatment at this time and is now requesting surgical intervention. The patient signed the consent. After careful explanation of risks, benefits, complications, and alternatives for the surgical procedure, no guarantees were given nor implied. Ancef 2 g IV was given to the patient prior to the procedure. NPO status was confirmed prior to taking the patient to the operating room. PREPARATION: The patient was brought to the operating room and placed on the operating room table in supine position. A well-padded pneumatic thigh tourniquet was placed on the patient's left thigh. After induction of sedation, the left leg was prepped and draped in the usual sterile manner and the procedure began. DESCRIPTION OF PROCEDURE: Attention was directed to the lateral aspect of the left foot where an approximately 4-cm curvilinear incision was created overlying the sinus tarsi lesion at the proximal aspect of the calcaneus. The incision was deepened through the subcutaneous tissues with care being taken to identify and retract all vital neurovascular structures. All bleeders were cauterized and ligated as necessary. At this time, the fracture fragments were identified through the incision. The fragments were carefully dissected free from the overlying soft tissues and the lateral fracture fragment was carefully manipulated and the fracture lines were carefully divided of hematoma. The positioning of the fracture fragments was visualized using fluoroscopy. At this time, a Schanz pin from the Arthrex set was drilled through the calcaneal tuberosity from medial to lateral in order to act as a joystick to bring the calcaneus out to length. The tuberosity was carefully mobilized and manipulated out to length, thus reducing the main fracture fragments. Once this was completed, two large bone clamps were placed over the body of the calcaneus thus reducing the main vertical fracture of the calcaneus. Once this was completed, the lateral fracture fragment was carefully manipulated and rotated back up into position thus restoring the articular surface of the subtalar joint. Once this was completed, the positioning of the fragments were checked under fluoroscopy; it was noted that the height of the calcaneus had been restored and the tuberosity brought out to length. The calcaneus had been reduced out of varus and the lateral and medial fracture fragments had been restored. At this time, the wound was copiously irrigated using normal sterile saline. The Arthrex Quickset was then prepared on the back table. Once this was prepared, it was injected into a large bone defect that was present within the fracture site. The Quickset was allowed to dry for approximately 10 to 12 minutes. Once it had hardened, an Arthrex long pecutaneous calcaneal plate was selected from the set. The plate was percutaneously applied to the lateral aspect of the calcaneus, then provisionally tacked down to the bone using BB taks. Next, the visible holes were drilled and appropriate screws inserted beginning with cortical screws in order to suck the plate down to the bone followed by locking screws. After that, the three most posterior screws were inserted percutaneously using the guide plate from the Arthrex set. Small stab incisions were created overlying the holes of the plate that needed to be filled. The holes were then drilled and appropriate screws inserted. Then, 3.5, 24 mm and 26 mm as well as 14 mm locking screws were inserted into the plate and 3.5 mm, 34 mm and 38 mm cortical screws were inserted. Once the plate and all screws were inserted, the positioning of the fracture and hardware was checked under fluoroscopy. The reduction of the calcaneus was noted to be maintained and the positioning of the hardware was noted to be well aligned. No screws were seen to be entering any of the joints and the fixation was complete. The wound was copiously irrigated with normal sterile saline. The closure was done using 2-0 Vicryl. Subcuticular closure was done using 3-0 Vicryl and the skin was closed using 4-0 nylon. 10 mL of 0.5% Marcaine plain was injected in a local block fashion to the medial aspect of the left ankle in order to block the saphenous nerve. Next, the wound was dressed using Xeroform, 4x4s, ABD, and Kerlix. A well-padded posterior splint was then applied to the left lower extremity. POSTOPERATIVE CONDITION: The patient tolerated the anesthesia and procedure well and was escorted to the recovery room with vital signs stable and neurovascular status intact to the left lower extremity. The patient received the popliteal block in the PACU. Patient is an inpatient and will be followed carefully by Dr. Naranjo in the floors. Mya Kelley DPM [email or web address]
[2017-04-26] MEDS ORDERED: Potassium Chloride 20 mEq ER Tab PO ONE ×2 (09:37→10:45)
--- NOTE | 2017-04-26 09:37 | RAD ---
PROCEDURE: Intraoperative fluoroscopy HISTORY: LEFT CALCANEUS FX COMPARISON: Not available TECHNIQUE: Intraoperative fluoroscopy was provided for ORIF of a calcaneal fracture. Total time of fluoroscopy was 249.4 seconds. FINDINGS: Multiple fluoroscopic spot films are submitted demonstrating progressive stages of ORIF of left calcaneus fracture. Films are on file for review. IMPRESSION: Fluoroscopy provided.
--- NOTE | 2017-04-26 09:38 | CP.PCM.PN ---
<Tamera Le - Last Filed: 04/26/17 11:10> Subjective - Date & Time of Evaluation Date of Evaluation: 04/26/17 Time of Evaluation: 09:38 - Subjective Subjective: Medicine Progress Note for Dr. Ryder Patient was seen and examined at bedside in no acute distress. Patient is s/p left calcaneus ORIF, POD#1. Patient reports having some pain at the surgical site, but pain improves with pain medication. Review of systems otherwise negative. Objective - Vital Signs/Intake and Output Vital Signs (last 24 hours): Temp Pulse Resp BP Pulse Ox 98.5 F 89 20 104/69 98 04/26/17 08:00 04/26/17 08:00 04/26/17 08:00 04/26/17 08:00 04/26/17 08:00 Intake and Output: 04/26/17 04/26/17 06:59 18:59 Intake Total 170 Output Total 600 Balance -430 - Medications Medications: Current Medications Acetaminophen (Tylenol 325mg Tab) 650 mg PO Q6 PRN PRN Reason: Pain, Mild (1-3) Last Admin: 04/26/17 01:01 Dose: 650 mg Docusate Sodium (Colace) 100 mg PO BID [facility] Last Admin: 04/26/17 09:21 Dose: 100 mg Famotidine (Pepcid) 20 mg IVP Q12 [facility] Last Admin: 04/26/17 09:22 Dose: 20 mg Ketorolac Tromethamine (Toradol) 15 mg IVP Q6 PRN PRN Reason: Pain, moderate (4-7) Last Admin: 04/24/17 20:22 Dose: 15 mg Ketorolac Tromethamine (Toradol) 30 mg IVP Q6 PRN PRN Reason: Pain, severe (8-10) Last Admin: 04/26/17 03:21 Dose: 30 mg Nicotine (Nicoderm Cq) 1 patch TD DAILY [facility] Last Admin: 04/26/17 09:27 Dose: Not Given Potassium Chloride (K-Dur 20 Meq Er Tab) 40 meq PO ONCE ONE Stop: 04/26/17 09:38 - Labs Labs: 04/26/17 06:55 04/26/17 06:55 PT 11.1 SECONDS (9.7-12.2) 04/23/17 08:25 INR 1.0 04/23/17 08:25 APTT 26 SECONDS (21-34) 04/23/17 08:25 - Additional Findings Additional findings: - Constitutional Appears: No Acute Distress - Head Exam Head Exam: ATRAUMATIC, NORMAL INSPECTION - Eye Exam Eye Exam: EOMI, Normal appearance - ENT Exam ENT Exam: Mucous Membranes Moist - Respiratory Exam Respiratory Exam: Clear to Ausculation Bilateral, NORMAL BREATHING PATTERN. absent: Rales, Rhonchi, Wheezes, Respiratory Distress - Cardiovascular Exam Cardiovascular Exam: REGULAR RHYTHM, +S1, +S2 - GI/Abdominal Exam GI & Abdominal Exam: Soft, Normal Bowel Sounds. absent: Distended, Firm, Guarding, Tenderness - Extremities Exam Extremities Exam: Tenderness (s/p left calcanei ORIF-casts with michelle wrap from knee down to toes. Toes exposed; patient able to move toes; sensation intact) - Neurological Exam Neurological Exam: Alert, Awake, Oriented x3 - Psychiatric Exam Psychiatric exam: Normal Affect, Normal Mood - Skin Skin Exam: Dry, Intact, Normal Color, Warm Assessment and Plan (1) Bilateral calcaneal fractures Status: Acute (2) Tobacco abuse Status: Acute (3) Prophylactic measure Status: Acute - Assessment and Plan (Free Text) Plan: Assessment & Plan (1) Bilateral calcaneal fractures Assessment and Plan: Foot xray: follow up official report Ankle xray: follow up official report Given one dose of Lovenox on 04/24/17. LE CT: comminuted fractures of left and right calcanei, left more severe than right; surrounding soft tissue swelling. left than right ankle mortise intact Podiatry consulted- Dr. Naranjo; help appreciated * Patient s/p left calcaneal ORIF, POD#1 * Patient is scheduled for the OR on for the right foot.--> NPO@[place] Preop: * CXR: no acute infiltrates; nodular density of left upper lung field, could represent 1st rib artifact or tiny granuloma; suggests repeat in 2 months * EKG: follow up official report * PT 11.1; INR 1.0; PTT 26 * CBC: WBC 14.6; Hgb 14.1, Hct 41.6, Platelets 230 * CMP within normal limits Pain Management: * Discontinued Morphine 1mg IV Q6prn started for pain * Tylenol 650mg PO Q6 PRN (mild pain) * Toradol 15mg Q6 PRN (moderate pain) * Toradol 30mg Q6 PRN (severe pain) Status: Acute (2) Tobacco abuse Assessment and Plan: * Discussed tobacco cessation at length. * Nicoderm patch started. Status: Acute (3) Prophylactic measure Assessment and Plan: * Anitcoagulation held at this time- plan to go to OR as per podiatry * Was given one dose of Lovenox on 04/24/17 * Was given one dose of Lovenox on 04/26/17 * No SCDs- LE swelling * Pepcid 20mg IV BID * Regular diet--> NPO after [place] for OR on 04/27/17 * Fall precautions Status: Acute <Vern Ryder - Last Filed: 04/26/17 18:56> Objective - Vital Signs/Intake and Output Vital Signs (last 24 hours): Temp Pulse Resp BP Pulse Ox 98.3 F 89 20 115/71 99 04/26/17 15:00 04/26/17 15:00 04/26/17 15:00 04/26/17 15:00 04/26/17 15:00 Intake and Output: 04/26/17 04/26/17 06:59 18:59 Intake Total 770 Output Total 1480 Balance -710 - Medications Medications: Current Medications Acetaminophen (Tylenol 325mg Tab) 650 mg PO Q6 PRN PRN Reason: Pain, Mild (1-3) Last Admin: 04/26/17 01:01 Dose: 650 mg Docusate Sodium (Colace) 100 mg PO BID [facility] Last Admin: 04/26/17 17:00 Dose: 100 mg Famotidine (Pepcid) 20 mg IVP Q12 [facility] Last Admin: 04/26/17 09:22 Dose: 20 mg Ketorolac Tromethamine (Toradol) 15 mg IVP Q6 PRN PRN Reason: Pain, moderate (4-7) Last Admin: 04/24/17 20:22 Dose: 15 mg Ketorolac Tromethamine (Toradol) 30 mg IVP Q6 PRN PRN Reason: Pain, severe (8-10) Last Admin: 04/26/17 12:31 Dose: 30 mg Nicotine (Nicoderm Cq) 1 patch TD DAILY [facility] Last Admin: 04/26/17 09:27 Dose: Not Given - Labs Labs: 04/26/17 06:55 04/26/17 06:55 PT 11.1 SECONDS (9.7-12.2) 04/23/17 08:25 INR 1.0 04/23/17 08:25 APTT 26 SECONDS (21-34) 04/23/17 08:25 Attending/Attestation - Attestation I have personally seen and examined this patient.: Yes I have fully participated in the care of the patient.: Yes I have reviewed all pertinent clinical information, including history, physical exam and plan: Yes Notes (Text): 04/26/17 18:56 Patient was seen and examined at 8:15 AM 04/26/17 360 A Exam, Assessment and Plan were thoroughly gone over with the resident. Vern Ryder D.O.
--- NOTE | 2017-04-26 21:17 | CP.PCM.PN ---
Subjective - Date & Time of Evaluation Date of Evaluation: 04/26/17 Time of Evaluation: 11:50 - Subjective Subjective: 26 y/o male seen at bedside 1 day s/p left foot surgery. Pt is in no acute distress and states pain is well controlled bilaterally. Pt states he is compliant with strict bedrest and is making no attempts to ambulate due to extent of injuries. Pt denies F/C/N/V/CP/SOB. Pt denies numbness or tingling in both feet. Pt is in good spirits during interview. Pt's noted strikethrough overnight was addressed with additional suture closure and posteriro splint was replaced overnight. Objective - Vital Signs/Intake and Output Vital Signs (last 24 hours): Temp Pulse Resp BP Pulse Ox 98.3 F 89 20 115/71 99 04/26/17 15:00 04/26/17 15:00 04/26/17 15:00 04/26/17 15:00 04/26/17 15:00 Intake and Output: 04/26/17 04/27/17 18:59 06:59 Intake Total 770 Output Total 1480 Balance -710 - Medications Medications: Current Medications Acetaminophen (Tylenol 325mg Tab) 650 mg PO Q6 PRN PRN Reason: Pain, Mild (1-3) Last Admin: 04/26/17 01:01 Dose: 650 mg Docusate Sodium (Colace) 100 mg PO BID [facility] Last Admin: 04/26/17 17:00 Dose: 100 mg Famotidine (Pepcid) 20 mg IVP Q12 [facility] Last Admin: 04/26/17 09:22 Dose: 20 mg Ketorolac Tromethamine (Toradol) 15 mg IVP Q6 PRN PRN Reason: Pain, moderate (4-7) Last Admin: 04/24/17 20:22 Dose: 15 mg Ketorolac Tromethamine (Toradol) 30 mg IVP Q6 PRN PRN Reason: Pain, severe (8-10) Last Admin: 04/26/17 18:59 Dose: 30 mg Nicotine (Nicoderm Cq) 1 patch TD DAILY [facility] Last Admin: 04/26/17 09:27 Dose: Not Given - Labs Labs: 04/26/17 06:55 04/26/17 06:55 PT 11.1 SECONDS (9.7-12.2) 04/23/17 08:25 INR 1.0 04/23/17 08:25 APTT 26 SECONDS (21-34) 04/23/17 08:25 - Constitutional Appears: Well, Non-toxic, No Acute Distress - Extremities Exam Additional comments: Lower extremity focused. Posterior splints intact bilaterally. Neuro-vascular status intact to level of digits bilaterally. Pt able to move toes to verbal prompting. Assessment and Plan - Assessment and Plan (Free Text) Assessment: 26 y/o male with bilateral comminuted calcaneal fractures secondary to trauma; POD#1 left calcaneal ORIF (DOS: 04/25/17) Plan: Wellness check performed. Chart, labs, and vitals reviewed. Continue 2 total doses post-op Ancef 1 gram to completion. Pt stable, no complications to left side post-op. Right foot clinically same. - Continue DVT prophlaxis. - Continue bedrest Pt to undergo Right calcaneal ORIF Monday04/28/17 at noon. -Pt to be made NPO at midnight. Pt to remain on bedrest, with posterior splints intact. - To address physical therapy plan post-operatively. Podiatry will continue to follow while inhouse.
--- NOTE | 2017-04-27 07:19 | CP.PCM.PN ---
Subjective - Date & Time of Evaluation Date of Evaluation: 04/27/17 Time of Evaluation: 07:19 - Subjective Subjective: Medicine Progress Note for Dr. Ryder Patient was seen and examined at bedside in no acute distress. Patient reports having pain in his leg earlier, but the pain medications help. He currently has no discomfort. Patient reports tolerating his diet. Patient denies having chest pain, shortness of breath, abdominal pain, nausea, vomiting, fevers, and headaches. Objective - Vital Signs/Intake and Output Vital Signs (last 24 hours): Temp Pulse Resp BP Pulse Ox 98.8 F 86 20 105/65 99 04/27/17 00:00 04/27/17 00:00 04/27/17 00:00 04/27/17 00:00 04/27/17 00:00 Intake and Output: 04/27/17 04/27/17 06:59 18:59 Intake Total 480 Balance 480 - Medications Medications: Current Medications Acetaminophen (Tylenol 325mg Tab) 650 mg PO Q6 PRN PRN Reason: Pain, Mild (1-3) Last Admin: 04/26/17 01:01 Dose: 650 mg Docusate Sodium (Colace) 100 mg PO BID [facility] Last Admin: 04/26/17 17:00 Dose: 100 mg Famotidine (Pepcid) 20 mg IVP Q12 [facility] Last Admin: 04/26/17 21:33 Dose: 20 mg Ketorolac Tromethamine (Toradol) 15 mg IVP Q6 PRN PRN Reason: Pain, moderate (4-7) Last Admin: 04/24/17 20:22 Dose: 15 mg Ketorolac Tromethamine (Toradol) 30 mg IVP Q6 PRN PRN Reason: Pain, severe (8-10) Last Admin: 04/27/17 03:01 Dose: 30 mg Nicotine (Nicoderm Cq) 1 patch TD DAILY [facility] Last Admin: 04/26/17 09:27 Dose: Not Given - Labs Labs: 04/26/17 06:55 04/26/17 06:55 PT 11.1 SECONDS (9.7-12.2) 04/23/17 08:25 INR 1.0 04/23/17 08:25 APTT 26 SECONDS (21-34) 04/23/17 08:25 - Additional Findings Additional findings: - Constitutional Appears: No Acute Distress - Head Exam Head Exam: ATRAUMATIC, NORMAL INSPECTION - Eye Exam Eye Exam: EOMI, Normal appearance - ENT Exam ENT Exam: Mucous Membranes Moist - Respiratory Exam Respiratory Exam: Clear to Ausculation Bilateral, NORMAL BREATHING PATTERN. absent: Rales, Rhonchi, Wheezes, Respiratory Distress - Cardiovascular Exam Cardiovascular Exam: REGULAR RHYTHM, +S1, +S2 - GI/Abdominal Exam GI & Abdominal Exam: Soft, Normal Bowel Sounds. absent: Distended, Firm, Guarding, Tenderness - Extremities Exam Extremities Exam: Tenderness (s/p left calcanei ORIF-casts with michelle wrap from knee down to toes. Toes exposed; patient able to move toes; sensation intact) - Neurological Exam Neurological Exam: Alert, Awake, Oriented x3 - Psychiatric Exam Psychiatric exam: Normal Affect, Normal Mood - Skin Skin Exam: Dry, Intact, Normal Color, Warm Assessment and Plan (1) Bilateral calcaneal fractures Status: Acute (2) Tobacco abuse Status: Acute (3) Prophylactic measure Status: Acute - Assessment and Plan (Free Text) Plan: (1) Bilateral calcaneal fractures Assessment and Plan: Foot xray: follow up official report Ankle xray: follow up official report Given one dose of Lovenox on 04/24/17. LE CT: comminuted fractures of left and right calcanei, left more severe than right; surrounding soft tissue swelling. left than right ankle mortise intact Podiatry consulted- Dr. Naranjo; help appreciated * Patient s/p left calcaneal ORIF, POD#2 * Patient is scheduled for the OR on 04/28/17 for the right foot ORIF.-- > NPO@[place] Preop: * CXR: no acute infiltrates; nodular density of left upper lung field, could represent 1st rib artifact or tiny granuloma; suggests repeat in 2 months * EKG: follow up official report * PT 11.1; INR 1.0; PTT 26 * CBC: WBC 14.6; Hgb 14.1, Hct 41.6, Platelets 230 * CMP within normal limits Pain Management: * Discontinued Morphine 1mg IV Q6prn started for pain * Tylenol 650mg PO Q6 PRN (mild pain) * Toradol 15mg Q6 PRN (moderate pain) * Toradol 30mg Q6 PRN (severe pain) Status: Acute (2) Tobacco abuse Assessment and Plan: * Discussed tobacco cessation at length. * Nicoderm patch started. Status: Acute (3) Prophylactic measure Assessment and Plan: * Anitcoagulation held at this time- plan to go to OR as per podiatry * Was given one dose of Lovenox on 04/24/17 * Was given one dose of Lovenox on 04/26/17 * Was given one dose of Lovenox on 04/27/17 * No SCDs- LE swelling * Pepcid 20mg IV BID * Regular diet--> NPO after [place] for OR on Monday04/28/17 * Fall precautions * Incentive spirometer Q1 Status: Acute
[2017-04-27 08:41] LABS: BASO % 0.5 % (0.0-2.0); EOS # 0.1 K/uL (0.0-0.7); EOS % 1.2 % (0.0-4.0); LYMPH # 1.1 K/uL (1.0-4.3); LYMPH % 15.7 % (20.0-40.0); MEAN CELL VOLUME 90.6 fL (80.0-94.0); MEAN CORPUSCULAR HEMOGLOBIN 31.3 pg (27.0-31.0); MEAN CORPUSCULAR HGB CONC 34.5 g/dL (33.0-37.0); MEAN PLATELET VOLUME 9.7 fL (7.2-11.7); MONO # 0.9 K/uL (0.0-0.8); MONO % 13.1 % (0.0-10.0); RED CELL DISTRIBUTION WIDTH 12.2 % (11.5-14.5); WHITE BLOOD COUNT 6.8 K/uL (4.8-10.8)
[2017-04-27 08:51] LABS: ALB/GLOB RATIO 1.3 (1.0-2.1); ALKALINE PHOSPHATASE 52 U/L (38-126); ALT/SGPT 44 U/L (21-72); AST/SGOT 34 U/L (17-59); BLOOD UREA NITROGEN 8 mg/dL (9-20); CALCIUM 8.5 mg/dl (8.6-10.4); CARBON DIOXIDE 29 mmol/L (22-30); CHLORIDE 100 mmol/L (98-107); GFR AFRICAN-AMERICAN > 60; GLUCOSE,RANDOM 98 mg/dL (75-110); POTASSIUM 4.7 mmol/L (3.6-5.2); SODIUM 138 mmol/L (132-148); TOTAL PROTEIN 6.3 g/dL (6.3-8.3)
--- NOTE | 2017-04-27 10:52 | CP.PCM.PN ---
Subjective - Date & Time of Evaluation Date of Evaluation: 04/27/17 Time of Evaluation: 11:04 - Subjective Subjective: 26 y/o male seen at bedside 2 day s/p left foot surgery. Pt is in no acute distress and states pain is well controlled bilaterally. Pt states he is compliant with strict bedrest and is making no attempts to ambulate due to extent of injuries. Pt denies numbness or tingling in both feet. Pt is in good spirits during interview. Pt denies F/C/N/V/CP/SOB, or constipation. Objective - Vital Signs/Intake and Output Vital Signs (last 24 hours): Temp Pulse Resp BP Pulse Ox 98.3 F 86 20 105/70 99 04/27/17 08:00 04/27/17 08:00 04/27/17 08:00 04/27/17 08:00 04/27/17 00:00 Intake and Output: 04/27/17 04/27/17 06:59 18:59 Intake Total 480 Balance 480 - Medications Medications: Current Medications Acetaminophen (Tylenol 325mg Tab) 650 mg PO Q6 PRN PRN Reason: Pain, Mild (1-3) Last Admin: 04/26/17 01:01 Dose: 650 mg Docusate Sodium (Colace) 100 mg PO BID [facility] Last Admin: 04/27/17 09:40 Dose: 100 mg Famotidine (Pepcid) 20 mg IVP Q12 [facility] Last Admin: 04/27/17 09:40 Dose: 20 mg Ketorolac Tromethamine (Toradol) 15 mg IVP Q6 PRN PRN Reason: Pain, moderate (4-7) Last Admin: 04/24/17 20:22 Dose: 15 mg Ketorolac Tromethamine (Toradol) 30 mg IVP Q6 PRN PRN Reason: Pain, severe (8-10) Last Admin: 04/27/17 03:01 Dose: 30 mg Nicotine (Nicoderm Cq) 1 patch TD DAILY [facility] Last Admin: 04/27/17 09:40 Dose: Not Given - Labs Labs: 04/27/17 08:18 04/27/17 08:18 PT 11.1 SECONDS (9.7-12.2) 04/23/17 08:25 INR 1.0 04/23/17 08:25 APTT 26 SECONDS (21-34) 04/23/17 08:25 - Constitutional Appears: Well, Non-toxic, No Acute Distress - Extremities Exam Additional comments: Lower extremity focused. Posterior splints intact bilaterally. Neuro-vascular status intact to level of digits bilaterally. Pt able to move toes to verbal prompting. - Neurological Exam Neurological Exam: Alert, Awake, Oriented x3 - Psychiatric Exam Psychiatric exam: Normal Affect, Normal Mood Assessment and Plan - Assessment and Plan (Free Text) Assessment: 26 y/o male with bilateral comminuted calcaneal fractures secondary to trauma; POD#2 left calcaneal ORIF (DOS: 04/25/17) Plan: Wellness check performed. Chart, labs, and vitals reviewed. Completed post-op Ancef regimen. Pt stable, no complications to left side post-op. Right foot clinically same. - Pt to remain on bedrest, with posterior splints intact. - To address physical therapy plan post-operatively. Pt to undergo Right calcaneal ORIF Monday04/28/17 at noon. -Pt to be made NPO at midnight. -DVT prophylaxis Lovenox 40mg SC held until after surgery. Podiatry will continue to follow while inhouse.
[2017-04-27] MEDS ORDERED: Enoxaparin 40 mg Syringe SC ONE (11:04)
[2017-04-28 07:42] LABS: BASO % 0.4 % (0.0-2.0); EOS # 0.1 K/uL (0.0-0.7); EOS % 0.9 % (0.0-4.0); HEMATOCRIT 34.4 % (35.0-51.0); LYMPH # 1.2 K/uL (1.0-4.3); LYMPH % 16.2 % (20.0-40.0); MEAN CELL VOLUME 89.3 fL (80.0-94.0); MEAN CORPUSCULAR HEMOGLOBIN 30.8 pg (27.0-31.0); MEAN CORPUSCULAR HGB CONC 34.4 g/dL (33.0-37.0); MEAN PLATELET VOLUME 9.5 fL (7.2-11.7); MONO # 0.9 K/uL (0.0-0.8); MONO % 12.8 % (0.0-10.0); NRBC % 0.1 % (0.0-2.0); RED CELL DISTRIBUTION WIDTH 12.4 % (11.5-14.5); WHITE BLOOD COUNT 7.2 K/uL (4.8-10.8)
[2017-04-28 08:05] LABS: ALB/GLOB RATIO 1.3 (1.0-2.1); ALKALINE PHOSPHATASE 66 U/L (38-126); ALT/SGPT 82 U/L (21-72); AST/SGOT 75 U/L (17-59); BILIRUBIN,TOTAL 1.1 mg/dL (0.2-1.3); BLOOD UREA NITROGEN 7 mg/dL (9-20); CALCIUM 8.6 mg/dl (8.6-10.4); CARBON DIOXIDE 29 mmol/L (22-30); CHLORIDE 100 mmol/L (98-107); GFR AFRICAN-AMERICAN > 60; GLUCOSE,RANDOM 105 mg/dL (75-110); POTASSIUM 4.4 mmol/L (3.6-5.2); SODIUM 139 mmol/L (132-148); TOTAL PROTEIN 6.9 g/dL (6.3-8.3)
[2017-04-28] MEDS ORDERED: Bupivacaine HCl 0.5% PF (10 ml) Inj ONE ×3 (13:40→17:49)
[2017-04-28] MEDS ORDERED: ceFAZolin IV 2 gm in Dextrose 0 GM/0 ML BAG IVPB ONE (13:40)
[2017-04-28] MEDS ORDERED: Lidocaine 1% Inj (20ml) ONE (14:11)
[2017-04-28] MEDS ORDERED: Lactated Ringer's 1,000 ML IV ONE ×3 (14:30→15:53)
[2017-04-28] MEDS ORDERED: Midazolam 2 MG/2 ML VIAL ONE (14:34)
[2017-04-28] MEDS ORDERED: Propofol 10 mg/ml Inj (20 ML) ONE (14:34)
[2017-04-28] MEDS ORDERED: ceFAZolin IV 1 gm in Dextrose 1 GM/50 ML BAG IVPB ONE (14:38)
--- NOTE | 2017-04-28 15:37 | CP.PCM.PN ---
Addendum entered and electronically signed by Tamera Le 04/28/17 16:34 : Elevated Transaminases: continue to monitor on morning labs. Original Note: <Tamera Le - Last Filed: 04/28/17 15:34> Subjective - Date & Time of Evaluation Date of Evaluation: 04/28/17 Time of Evaluation: 15:34 - Subjective Subjective: Medicine Progress Note for Dr. Ryder Patient was seen and examined at bedside in no acute distress. Patient reports he is feeling well and has very little pain when at rest. Patient denies chest pain, abdominal pain, nausea, vomiting, fevers, and headaches. Objective - Vital Signs/Intake and Output Vital Signs (last 24 hours): Temp Pulse Resp BP Pulse Ox 99.1 F 94 H 20 98/68 L 99 04/28/17 07:27 04/28/17 07:27 04/28/17 07:27 04/28/17 07:27 04/28/17 07:27 Intake and Output: 04/28/17 04/28/17 06:59 18:59 Intake Total 340 0 Output Total 600 Balance 340 -600 - Medications Medications: Current Medications Acetaminophen (Tylenol 325mg Tab) 650 mg PO Q6 PRN PRN Reason: Pain, Mild (1-3) Last Admin: 04/26/17 01:01 Dose: 650 mg Docusate Sodium (Colace) 100 mg PO BID [facility] Last Admin: 04/28/17 09:30 Dose: Not Given Famotidine (Pepcid) 20 mg IVP Q12 [facility] Last Admin: 04/28/17 09:34 Dose: 20 mg Ketorolac Tromethamine (Toradol) 15 mg IVP Q6 PRN PRN Reason: Pain, moderate (4-7) Last Admin: 04/24/17 20:22 Dose: 15 mg Ketorolac Tromethamine (Toradol) 30 mg IVP Q6 PRN PRN Reason: Pain, severe (8-10) Last Admin: 04/28/17 00:32 Dose: 30 mg Nicotine (Nicoderm Cq) 1 patch TD DAILY [facility] Last Admin: 04/28/17 09:34 Dose: Not Given - Labs Labs: 04/28/17 06:57 04/28/17 06:57 PT 11.1 SECONDS (9.7-12.2) 04/23/17 08:25 INR 1.0 04/23/17 08:25 APTT 26 SECONDS (21-34) 04/23/17 08:25 - Additional Findings Additional findings: - Constitutional Appears: No Acute Distress - Head Exam Head Exam: ATRAUMATIC, NORMAL INSPECTION - Eye Exam Eye Exam: EOMI, Normal appearance - ENT Exam ENT Exam: Mucous Membranes Moist - Respiratory Exam Respiratory Exam: Clear to Ausculation Bilateral, NORMAL BREATHING PATTERN. absent: Rales, Rhonchi, Wheezes, Respiratory Distress - Cardiovascular Exam Cardiovascular Exam: REGULAR RHYTHM, +S1, +S2 - GI/Abdominal Exam GI & Abdominal Exam: Soft, Normal Bowel Sounds. absent: Distended, Firm, Guarding, Tenderness - Extremities Exam Extremities Exam: Tenderness (s/p left calcanei ORIF-casts with michelle wrap from knee down to toes. Toes exposed; patient able to move toes; sensation intact) - Neurological Exam Neurological Exam: Alert, Awake, Oriented x3 - Psychiatric Exam Psychiatric exam: Normal Affect, Normal Mood - Skin Skin Exam: Dry, Intact, Normal Color, Warm Assessment and Plan (1) Bilateral calcaneal fractures Status: Acute (2) Tobacco abuse Status: Acute (3) Prophylactic measure Status: Acute - Assessment and Plan (Free Text) Plan: (1) Bilateral calcaneal fractures Assessment and Plan: Foot xray: follow up official report Ankle xray: follow up official report Given one dose of Lovenox on 04/24/17. LE CT: comminuted fractures of left and right calcanei, left more severe than right; surrounding soft tissue swelling. left than right ankle mortise intact Podiatry consulted- Dr. Naranjo; help appreciated * Patient s/p left calcaneal ORIF, POD#3 * Patient going to OR today, 04/28/17 for the right foot ORIF. Preop: * CXR: no acute infiltrates; nodular density of left upper lung field, could represent 1st rib artifact or tiny granuloma; suggests repeat in 2 months * EKG: follow up official report * PT 11.1; INR 1.0; PTT 26 * CBC: WBC 14.6; Hgb 14.1, Hct 41.6, Platelets 230 * CMP within normal limits Pain Management: * Discontinued Morphine 1mg IV Q6prn started for pain * Tylenol 650mg PO Q6 PRN (mild pain) * Toradol 15mg Q6 PRN (moderate pain) * Toradol 30mg Q6 PRN (severe pain) Status: Acute (2) Tobacco abuse Assessment and Plan: * Discussed tobacco cessation at length. * Nicoderm patch started. Status: Acute (3) Prophylactic measure Assessment and Plan: * Anitcoagulation held at this time- plan to go to OR as per podiatry * Was given one dose of Lovenox on 04/24/17 * Was given one dose of Lovenox on 04/26/17 * Was given one dose of Lovenox on 04/27/17 * No SCDs- LE swelling * Pepcid 20mg IV BID * Regular diet--> NPO after MN for OR on Monday04/28/17 * Fall precautions * Incentive spirometer Q1 Status: Acute <Vern Ryder - Last Filed: 04/28/17 19:13> Objective - Vital Signs/Intake and Output Vital Signs (last 24 hours): Temp Pulse Resp BP Pulse Ox 98.7 F 91 H 13 114/64 99 04/28/17 18:00 04/28/17 19:00 04/28/17 19:00 04/28/17 19:00 04/28/17 19:00 Intake and Output: 04/28/17 04/29/17 18:59 06:59 Intake Total 0 Output Total 600 Balance -600 - Medications Medications: Current Medications Acetaminophen (Tylenol 325mg Tab) 650 mg PO Q6 PRN PRN Reason: Pain, Mild (1-3) Last Admin: 04/26/17 01:01 Dose: 650 mg Docusate Sodium (Colace) 100 mg PO BID [facility] Last Admin: 04/28/17 09:30 Dose: Not Given Famotidine (Pepcid) 20 mg IVP Q12 [facility] Last Admin: 04/28/17 09:34 Dose: 20 mg Hydromorphone HCl (Dilaudid) 0.5 mg IVP Q5M PRN PRN Reason: Pain, moderate (4-7) Stop: 04/28/17 19:42 Hydromorphone HCl (Dilaudid) 1 mg IVP Q10M PRN PRN Reason: Pain, moderate (4-7) Stop: 04/28/17 20:30 Last Admin: 04/28/17 18:20 Dose: 1 mg Ketorolac Tromethamine (Toradol) 15 mg IVP Q6 PRN PRN Reason: Pain, moderate (4-7) Last Admin: 04/24/17 20:22 Dose: 15 mg Ketorolac Tromethamine (Toradol) 30 mg IVP Q6 PRN PRN Reason: Pain, severe (8-10) Last Admin: 04/28/17 00:32 Dose: 30 mg Meperidine HCl (Demerol) 12.5 mg IVP Q5M PRN PRN Reason: Shivering/Rigor Stop: 04/28/17 22:00 Last Admin: 04/28/17 18:03 Dose: 12.5 mg Nicotine (Nicoderm Cq) 1 patch TD DAILY [facility] Last Admin: 04/28/17 09:34 Dose: Not Given - Labs Labs: 04/28/17 18:42 04/28/17 06:57 PT 11.1 SECONDS (9.7-12.2) 04/23/17 08:25 INR 1.0 04/23/17 08:25 APTT 26 SECONDS (21-34) 04/23/17 08:25 Attending/Attestation - Attestation I have personally seen and examined this patient.: Yes I have fully participated in the care of the patient.: Yes I have reviewed all pertinent clinical information, including history, physical exam and plan: Yes Notes (Text): 04/28/17 19:12 Patient was seen and examined at 8 AM 04/28/17 350A Exam, assessment and plan were thoroughly gone over with the resident. Vern Ryder D.O.
[2017-04-28] MEDS ORDERED: HYDROmorphone 0.5 mg/0.5 ml ISec IVP PRN (17:41)
--- NOTE | 2017-04-28 18:01 | PCM.SURG1 ---
Surgeon's Initial Post Op Note - Surgeon's Notes Surgeon: Dr. Naranjo Applications Coordinator: Kervin Nelson, PGY-3, Angel Romero PGY-3 Type of Anesthesia: General LMA, Local, None Anesthesia Administered By: Dr. Morales Pre-Operative Diagnosis: Right foot calcaneal fracture Operative Findings: See dictation Post-Operative Diagnosis: Same Operation Performed: Right foot calcaneal ORIF Specimen/Specimens Removed: None Estimated Blood Loss: EBL {In ML}: 50 Blood Products Given: N/A Drains Used: No Drains Post-Op Condition: Good Date of Surgery/Procedure: 04/28/17 Time of Surgery/Procedure: 14:00
[2017-04-28] MEDS ORDERED: HYDROmorphone 1 mg/ml ISec ONE (18:21)
[2017-04-28] MEDS ORDERED: HYDROmorphone 1 mg/ml ISec IVP PRN (18:30)
--- NOTE | 2017-04-28 18:30 | PCM.ANESB2 ---
Popliteal Nerve Block - Popliteal Nerve Block Date of Procedure: 04/28/17 Anesthesiologist: Guanako Mcbride Pre-Procedure Diagnosis: right calcaneal fracture Post-Procedure Diagnosis: right ORIF calcaneus Procedure Performed: Popliteal Nerve Block Right - Procedure Popliteal Nerve Block: This procedure was explained to the patient that it is for post-operative pain management. Consent was obtained after a thorough discussion with the patient regarding the benefits and possible complications of local anesthetic block of the sciatic nerve at the popliteal level. The patient was brought to the recovery room and standard monitors are applied. Time-out was held with the recovery nurse to confirm the correct surgery and the appropriate block. After applying oxygen by nasal cannula and administering IV Sedation, patient's operative leg was gently raised and supported and the groove in between the biceps femoris and vastus lateralis muscles was carefully palpated. The skin approximately 8cm above the popliteal crease was then marked. The ultrasound transducer was then applied to the posterior thigh approximately 8cm above the popliteal crease in the transverse plane and the sciatic nerve before its division was visualized lateral to the popliteal artery and in between the bicep femoris and semimembranosus/semitendinosus muscles. After identification, the lateral portion of the thigh was prepped with Betadine solution three times and Lidocaine 1% was injected subcutaneously for topical anesthesia. At this point, a # 21 gauge Stimuplex insulated 4 inch needle was inserted into pre-marked area and advanced in a perpendicular direction. The needle was inserted above the ultrasound transducer in-plane towards the sciatic nerve in a [id number] direction. Needle advancement was performed carefully under direct ultrasound visualization. After repeated negative aspiration, __20___cc of _0.5_% _Bupivacaine_ was injected. Under ultrasound guidance the local anesthetics were observed surrounding sciatic nerve . The needle was removed intact and sterile dressing was applied. The patient tolerated the popliteal nerve block well with stable vital signs.
[2017-04-28 18:45] LABS: HEMATOCRIT 32.1 % (35.0-51.0)
--- NOTE | 2017-04-28 19:55 | RAD ---
PROCEDURE: Right Foot Radiographs. HISTORY: s/p R calc ORIF COMPARISON: Left foot radiographs 04/23/2017. FINDINGS: BONES: Patient is now status post open reduction and internal fixation of complex calcaneal fracture with fractures appearing adequately reduced. A complex compression plate is seen reducing the fractures by multiple compression screws in the interval. JOINTS: Normal. SOFT TISSUES: Normal. OTHER FINDINGS: None. IMPRESSION: Says ORIF right calcaneal fracture reduction as discussed above. No interval definite fracture subluxation or dislocation appreciable.
[2017-04-29 06:45] LABS: BASO % 0.5 % (0.0-2.0); EOS % 0.2 % (0.0-4.0); HEMATOCRIT 32.9 % (35.0-51.0); LYMPH # 0.6 K/uL (1.0-4.3); MEAN CELL VOLUME 89.3 fL (80.0-94.0); MEAN CORPUSCULAR HEMOGLOBIN 30.1 pg (27.0-31.0); MEAN CORPUSCULAR HGB CONC 33.7 g/dL (33.0-37.0); MONO # 1.3 K/uL (0.0-0.8); MONO % 12.6 % (0.0-10.0); PLATELET COUNT 279 K/uL (130-400); RED CELL DISTRIBUTION WIDTH 12.3 % (11.5-14.5)
[2017-04-29 06:53] LABS: ALB/GLOB RATIO 1.3 (1.0-2.1); ALKALINE PHOSPHATASE 64 U/L (38-126); ALT/SGPT 64 U/L (21-72); AST/SGOT 33 U/L (17-59); BILIRUBIN,TOTAL 1.4 mg/dL (0.2-1.3); BLOOD UREA NITROGEN 8 mg/dL (9-20); CALCIUM 8.3 mg/dl (8.6-10.4); CARBON DIOXIDE 29 mmol/L (22-30); CHLORIDE 98 mmol/L (98-107); GFR AFRICAN-AMERICAN > 60; GLUCOSE,RANDOM 123 mg/dL (75-110); POTASSIUM 5.3 mmol/L (3.6-5.2); SODIUM 133 mmol/L (132-148); TOTAL PROTEIN 6.5 g/dL (6.3-8.3)
[2017-04-29 08:57] LABS: NEUTROPHIL 78 % (50-75); REACTIVE LYMPHOCYTES 1 % (0-0); TOTAL CELLS COUNTED 100
--- NOTE | 2017-04-29 09:47 | RAD ---
PROCEDURE: Intraoperative Fluoroscopy. HISTORY: RT CALCANEOUS FX FINDINGS: Fluoroscopic assistance was provided for ORIF right calcaneus fracture. Please refer to the operative report from cumulative DLP dose of 6.33 mGy.
--- NOTE | 2017-04-29 10:01 | CP.PCM.PN ---
<Kaylee Wylie - Last Filed: 04/29/17 10:25> Subjective - Date & Time of Evaluation Date of Evaluation: 04/29/17 Time of Evaluation: 09:00 - Subjective Subjective: Medicine Progress Note- Dr Ryder's service Patient seen and examined. POD #4 s/p left foot calcaneus ORIF and POD #1 s/p right foot calcaneus ORIF. Patient is awake and alert. Patient states that he is currently not experiencing pain in his legs but feels a burning sensation in his right leg at this time. Patient has been urinating but has not had a bowel movement yet since procedure yesterday. He has not eaten breakfast due to a decreased appetite. The patient states that he has been using incentive spirometer as instructed. Patient denies getting out of bed since yesterday. Denies chest pain, shortness of breath, nausea, vomiting, abdominal pain, numbness, focal weakness, headache, and fever. Objective - Vital Signs/Intake and Output Vital Signs (last 24 hours): Temp Pulse Resp BP Pulse Ox 99.9 F H 108 H 74 H 121/74 99 04/29/17 08:14 04/29/17 08:14 04/29/17 08:14 04/29/17 08:14 04/29/17 08:14 Intake and Output: 04/29/17 04/29/17 06:59 18:59 Intake Total 1580 Output Total 600 Balance 980 - Medications Medications: Current Medications Acetaminophen (Tylenol 325mg Tab) 650 mg PO Q6 PRN PRN Reason: Pain, Mild (1-3) Last Admin: 04/26/17 01:01 Dose: 650 mg Docusate Sodium (Colace) 100 mg PO BID [facility] Last Admin: 04/28/17 18:00 Dose: Not Given Famotidine (Pepcid) 20 mg IVP Q12 [facility] Last Admin: 04/28/17 22:48 Dose: 20 mg Ketorolac Tromethamine (Toradol) 15 mg IVP Q6 PRN PRN Reason: Pain, moderate (4-7) Last Admin: 04/24/17 20:22 Dose: 15 mg Ketorolac Tromethamine (Toradol) 30 mg IVP Q6 PRN PRN Reason: Pain, severe (8-10) Last Admin: 04/29/17 06:56 Dose: 30 mg Nicotine (Nicoderm Cq) 1 patch TD DAILY [facility] Last Admin: 04/28/17 09:34 Dose: Not Given - Labs Labs: 04/29/17 06:30 04/29/17 06:30 PT 11.1 SECONDS (9.7-12.2) 04/23/17 08:25 INR 1.0 04/23/17 08:25 APTT 26 SECONDS (21-34) 04/23/17 08:25 - Constitutional Appears: Non-toxic, No Acute Distress - Head Exam Head Exam: ATRAUMATIC, NORMOCEPHALIC - Eye Exam Eye Exam: EOMI, Normal appearance - ENT Exam ENT Exam: Mucous Membranes Moist - Neck Exam Neck Exam: Normal Inspection - Respiratory Exam Respiratory Exam: Clear to Ausculation Bilateral, NORMAL BREATHING PATTERN. absent: Rales, Rhonchi, Wheezes, Respiratory Distress - Cardiovascular Exam Cardiovascular Exam: REGULAR RHYTHM, +S1, +S2 - GI/Abdominal Exam GI & Abdominal Exam: Soft. absent: Distended, Guarding, Tenderness - Extremities Exam Additional comments: Left calcanei ORIF-cast with michelle wrap from knee down to toes with toes exposed, warm Right calcanei ORIF-full cast from knee down to toes - Neurological Exam Neurological Exam: Alert, Awake, CN II-XII Intact, Oriented x3 - Psychiatric Exam Psychiatric exam: Normal Affect, Normal Mood - Skin Skin Exam: Dry, Intact, Normal Color, Warm Assessment and Plan - Assessment and Plan (Free Text) Assessment: (1) Bilateral calcaneal fractures Assessment and Plan: 04/28 Foot xray: s/p R ORIF- no definitive displacement or fracture sublaxation noted 04/[address]: comminuted fractures of left and right calcanei, left more severe than right; surrounding soft tissue swelling. left than right ankle mortise intact Podiatry consulted- Dr. Naranjo; help appreciated * s/p left calcaneal ORIF, POD#4 (on 04/25) * s/p left calcaneal ORIF, POD#1 (on 04/28) * Encouraged patient to use incentive spirometer Pain Management: * Tylenol 650mg PO Q6 PRN (mild pain) * Toradol 15mg Q6 PRN (moderate pain) * Toradol 30mg Q6 PRN (severe pain) (2) Tobacco abuse Assessment and Plan: * Discussed tobacco cessation at length. * Nicoderm patch started. (3) Prophylactic measure Assessment and Plan: * Anitcoagulation Lovenox 40mg SC daily to be continued * Was given one dose of Lovenox on 04/24/17 * Was given one dose of Lovenox on 04/26/17 * Was given one dose of Lovenox on 04/27/17 * No SCDs- LE swelling * Pepcid 20mg PO BID * Regular diet * Fall precautions * Incentive spirometer Q1 <Vern Ryder - Last Filed: 04/29/17 18:59> Objective - Vital Signs/Intake and Output Vital Signs (last 24 hours): Temp Pulse Resp BP Pulse Ox 98.3 F 99 H 20 108/73 96 04/29/17 15:00 04/29/17 15:00 04/29/17 15:00 04/29/17 15:00 04/29/17 15:00 Intake and Output: 04/29/17 04/29/17 06:59 18:59 Intake Total 1580 500 Output Total 600 600 Balance 980 -100 - Medications Medications: Current Medications Acetaminophen (Tylenol 325mg Tab) 650 mg PO Q6 PRN PRN Reason: Pain, Mild (1-3) Last Admin: 04/26/17 01:01 Dose: 650 mg Acetaminophen (Tylenol 325mg Tab) 650 mg PO Q6 PRN PRN Reason: Fever >100.4 F Docusate Sodium (Colace) 100 mg PO BID [facility] Last Admin: 04/29/17 17:20 Dose: 100 mg Enoxaparin Sodium (Lovenox) 40 mg SC DAILY [facility] Last Admin: 04/29/17 11:52 Dose: 40 mg Famotidine (Pepcid) 20 mg PO BID [facility] Last Admin: 04/29/17 17:20 Dose: 20 mg Ketorolac Tromethamine (Toradol) 15 mg IVP Q6 PRN PRN Reason: Pain, moderate (4-7) Last Admin: 04/24/17 20:22 Dose: 15 mg Ketorolac Tromethamine (Toradol) 30 mg IVP Q6 PRN PRN Reason: Pain, severe (8-10) Last Admin: 04/29/17 13:07 Dose: 30 mg Nicotine (Nicoderm Cq) 1 patch TD DAILY [facility] Last Admin: 04/29/17 11:49 Dose: Not Given - Labs Labs: 04/29/17 06:30 04/29/17 06:30 PT 11.1 SECONDS (9.7-12.2) 04/23/17 08:25 INR 1.0 04/23/17 08:25 APTT 26 SECONDS (21-34) 04/23/17 08:25 Attending/Attestation - Attestation I have personally seen and examined this patient.: Yes I have fully participated in the care of the patient.: Yes I have reviewed all pertinent clinical information, including history, physical exam and plan: Yes Notes (Text): 04/29/17 18:49 Patient was seen and examined at 9:00 AM 04/29/17 350 A Exam, assessment and plan were gone over with the resident. Also on ROS: Moved his bowels Burning pain in the bilateral heals during the night but not since then Assessments: 1). Bilateral Calcaneal Fractures: S/P ORIF Left 04/25/17 and S/P ORIF Right 04/28/[address] Naranjo. Tylenol 650 mg PO Q6H PRN Mild Pain, Toradol 15 mg IV Q6H PRN Moderate Pain, Toradol 30 mg IV Q6H Severe Pain. 2). Hx Tobacco Use: Nicotine Patch 14 mg Q24H 3). Mild Anemia: Likely secondary to blood loss during ORIFs. Hg/Hct are stable. Continue to monitor. 4). Elevated LFTs: Could have been secondary to Toradol use for pain. AST and ALT are now normal. T Bili slightly elevated at 1.4. Continue to monitor. 5). Elevated Bands: monitor. Fever noted earlier this morning. 6). Prophylaxis: Lovenox 40 mg SC 1x/day, Colace 100 mg PO 2x/day, Pepcid 20 mg PO 1x/day, Encouraged Incentive Spirometry use (I also spoke with MARLA Cavanaugh to make sure that patient was using this throughout the day). I spoke with PT Cinthya: patient will need to demonstrate safe transfer from bed to wheelchair and back again prior to discharging patient. Paving Bed Maker will need to help arrange for wheelchair for patient if patient's friend (who is a Physical Therapist) can not procure one for him. Vern Ryder D.O.
[2017-04-29] MEDS: Enoxaparin 40 mg Syringe SC SCH (11:52)
--- NOTE | 2017-04-29 11:59 | CP.PCM.PN ---
Subjective - Date & Time of Evaluation Date of Evaluation: 04/29/17 Time of Evaluation: 09:00 - Subjective Subjective: Podiatry Progress Note - Dr. Naranjo 26 year old male patient seen and evaluated at bedside POD#1 right calcaneus ORIF and POD#4 left calcaneus ORIF. Patient hemodynamically stable and NAD. Patient is accompanied by friend at bedside. Patient admits to spiking a fever last night into this morning. Denies malaise/fatigue. Patient admits to mild pain to bilateral feet, well-controlled. Patient has been using the incentive spirometer about every 3 hours. Denies any problems with urination however states he has not had a bowel movement since before surgery. Denies any N/V/D/C/ SOB/calf pain. Offers no other pedal complaints at this time. Objective - Vital Signs/Intake and Output Vital Signs (last 24 hours): Temp Pulse Resp BP Pulse Ox 99.9 F H 108 H 74 H 121/74 99 04/29/17 08:14 04/29/17 08:14 04/29/17 08:14 04/29/17 08:14 04/29/17 08:14 Intake and Output: 04/29/17 04/29/17 06:59 18:59 Intake Total 1580 Output Total 600 Balance 980 - Medications Medications: Current Medications Acetaminophen (Tylenol 325mg Tab) 650 mg PO Q6 PRN PRN Reason: Pain, Mild (1-3) Last Admin: 04/26/17 01:01 Dose: 650 mg Docusate Sodium (Colace) 100 mg PO BID [facility] Last Admin: 04/29/17 11:48 Dose: 100 mg Enoxaparin Sodium (Lovenox) 40 mg SC DAILY [facility] Last Admin: 04/29/17 11:52 Dose: 40 mg Famotidine (Pepcid) 20 mg PO BID [facility] Ketorolac Tromethamine (Toradol) 15 mg IVP Q6 PRN PRN Reason: Pain, moderate (4-7) Last Admin: 04/24/17 20:22 Dose: 15 mg Ketorolac Tromethamine (Toradol) 30 mg IVP Q6 PRN PRN Reason: Pain, severe (8-10) Last Admin: 04/29/17 06:56 Dose: 30 mg Nicotine (Nicoderm Cq) 1 patch TD DAILY [facility] Last Admin: 04/29/17 11:49 Dose: Not Given - Labs Labs: 04/29/17 06:30 04/29/17 06:30 PT 11.1 SECONDS (9.7-12.2) 04/23/17 08:25 INR 1.0 04/23/17 08:25 APTT 26 SECONDS (21-34) 04/23/17 08:25 - Constitutional Appears: Well, Non-toxic, No Acute Distress - Extremities Exam Additional comments: Posterior splints to bilateral LE appear clean/dry/intact. NVSI to distal digits x10 Active ROM noted to digits x10 No pain on palpation of calf b/l - Neurological Exam Neurological Exam: Alert, Awake, Oriented x3 - Psychiatric Exam Psychiatric exam: Normal Affect, Normal Mood Assessment and Plan - Assessment and Plan (Free Text) Assessment: 26 y/o male with bilateral comminuted calcaneal fractures secondary to trauma POD#4 left calcaneal ORIF (DOS: 04/25/17) POD#1 right calcaneal ORIF (DOS: 04/28/17) Plan: Patient seen and evaluated Discussed with attending, Dr. Naranjo Patient febrile this AM (Tmax = 100.5), will continue to monitor -Tylenol prn fever WBC increased 10.0 this AM, likely reactive Pt stable, no complications to bilateral post-op. - Pt to remain on bedrest, with posterior splints intact. - To address physical therapy plan post-operatively. - Plan for splint change tomorrow Continue pain mgmt Colace for constipation Advise patient to use incentive spirometer every hour Podiatry will continue to follow patient while in house
--- NOTE | 2017-04-29 23:36 | PCM.OP ---
Operative Report - Operative Report Date of Surgery/Procedure: 04/28/17 Time of Surgery/Procedure: 14:40 Surgeon: Dr. Jana Naranjo DPM Esthetician: Kervin Nelson PGY-3, Angel Romero PGY-3 Anesthesia/Sedation: Dr. Morales Pre-Operative Diagnosis: Right foot calcaneus comminuted fracture Post-Operative Diagnosis: Right foot calcaneus comminuted fracture Indication for Surgery: The patient is a 26 year-old M with the above diagnoses. Patient was injured his bilateral calcaneus bone last weekend and requires surgical intervention for both feet. Patient had a left foot calcaneus open reduction and internal fixation o 04/25/17 and today patient was given right foot open reduction and internal fixation surgical intervention. Patient has been on non-weight bearing for both lower extremities. The patient signed the consent after careful explanation of risks, benefits, complication and alternatives for surgical procedure. No guarantees were given nor implied. 2 grams of Ancef IV were given to the pt hour prior to the procedure. NPO status was confirmed prior to taking pt to the OR. Operative Findings: Preparation: The patient was brought to the operating room and placed on the operating room table in supine position. A well-padded pneumatic thigh tourniquet was placed to the patient's Left Thigh. Once local anesthesia was achieved, the right lower extremity was then prepped and draped in usual sterile manner. Esmarch was utilized to exsanguinate the patient's Left lower extremity. Pneumatic Thigh tourniquet was then inflated to 350 mmHg and procedure began. Procedure/Operation Description: Procedure: Right foot calcaneus open reduction and internal fixation. Attention was directed to the lateral aspect of the right foot at the sinus tarsi area. Under the intra operative fluoroscopy, the location was confirmed. Next, Utilizing #15 blade, approximately 5 cm lineal longitudinal incision was made from the distal tip of the fibula to the base of the 4th metatarsal base overlying the sinus tarsi. The incision was deepened through the subcutaneous tissues with care being taken to identify and retract all vital neurovascular structures. All bleeders were cauterized and ligated as necessary. Next lateral aspect of the calcaneus periosteal tissues were incised and refracted to the dorsally and plantarly. At this time, all the fracture fragments were identified and one of the fracture fragments was removed from the lateral calcaneal wall and passed to the back table and soaked in the sterile saline. At this time, depression of the center of the calcaneus and part of the posterior facet was identified. At this time, under the intraoperative fluoroscopy the calcaneal tuberosity fracture fragment was identified. Next, Utilizing a 2.4 wire from the Arthrex set was drilled through the calcaneal tuberosity from the lateral to the medial in order to act as a claudy stick to bring the calcaneus out to length. The tuberosity was carefully mobilized and manipulated out to length, thus reducing the posterior aspect of the calcaneal fracture fragment. Next, Utilizing four large bone clamps, body of the calcaneus was reduced. Next, a 0.062 k wire was driven from the plantar- posterior aspect of the calcaneus to the posterior facet of the calcaneus for a temporally fixation. Once this was completed, lateral calcaneal bone fragment was applied to the lateral wall and Athrex Quick set injection was prepared. Once this was prepared, it was injected into a large bone defect that was present within the fracture site. Next, an arthrex long percutaneous calcaneal plated was applied to the lateral wall of the calcaneus and temporally fixated with BB-taks. Next, the plate location was confirmed under the intraoperative fluoroscopy. Next, Visible holes were drilled and cortical screws (3.5 x 30mm, 3.5 x 42mm) and locking screws (3.5 x 26mm, 3.5 x 22mm, 3.5 x 30mm) were inserted. Next, small stab incisions were created for the most posterior 3 holes and cortical screws were inserted under the intraoperative fluoroscopy. The cortical screws measured as 3.5 x 40mm (x2) and 3.5 x 38 mm. The location of the plate and screws were confirmed under the intraoperative fluoroscopy. Also the bone alignment and reduction were confirmed. The surgical site was flushed with copious amount of normal sterile saline. The deep tissues were reapproximated with #2-0 Vicryl, Subcutaneous tissues were reapproximated and coapted with #3-0 Vicryl and Skin was reapproximated and coapted with #3-0 Prolene. 10ml of the 0.5 % Marcaine plain was infiltrated to the medial aspect of the ankle. The right foot was dressed with Xeroform, 4x4, ABD pads and Kerlix. A well-padded posterior splint was applied to the left lower extremity. Estimated Blood Loss: 50cc Complications: None Discharge & Condition: Postoperative Condition: The patient tolerated the anesthesia and procedure well and was escorted to the recovery room with vital signs stable and neurovascular status intact to the left lower extremity. Patient was given left lower extremity Popliteal regional block in the PACU. Patient will back to the floor. Podiatry team and Dr. Naranjo will continue to follow while patient remains in the house.
--- NOTE | 2017-04-30 07:31 | CP.PCM.PN ---
<Kaylee Wylie - Last Filed: 04/30/17 11:34> Subjective - Date & Time of Evaluation Date of Evaluation: 04/30/17 Time of Evaluation: 11:23 - Subjective Subjective: Medicine Progress Note Patient seen and examined. POD #5 s/p left foot calcaneus ORIF and POD #2 s/p right foot calcaneus ORIF. Patient has been afebrile overnight. Denies chest pain, shortness of breath, headache, dizziness, and cough. Objective - Vital Signs/Intake and Output Vital Signs (last 24 hours): Temp Pulse Resp BP Pulse Ox 99.6 F 92 H 20 104/69 100 04/30/17 00:00 04/30/17 00:00 04/30/17 00:00 04/30/17 00:00 04/30/17 00:00 Intake and Output: 04/30/17 04/30/17 06:59 18:59 Intake Total 300 Balance 300 - Medications Medications: Current Medications Acetaminophen (Tylenol 325mg Tab) 650 mg PO Q6 PRN PRN Reason: Pain, Mild (1-3) Last Admin: 04/26/17 01:01 Dose: 650 mg Acetaminophen (Tylenol 325mg Tab) 650 mg PO Q6 PRN PRN Reason: Fever >100.4 F Docusate Sodium (Colace) 100 mg PO BID [facility] Last Admin: 04/29/17 17:20 Dose: 100 mg Enoxaparin Sodium (Lovenox) 40 mg SC DAILY [facility] Last Admin: 04/29/17 11:52 Dose: 40 mg Famotidine (Pepcid) 20 mg PO BID [facility] Last Admin: 04/29/17 17:20 Dose: 20 mg Ketorolac Tromethamine (Toradol) 15 mg IVP Q6 PRN PRN Reason: Pain, moderate (4-7) Last Admin: 04/24/17 20:22 Dose: 15 mg Ketorolac Tromethamine (Toradol) 30 mg IVP Q6 PRN PRN Reason: Pain, severe (8-10) Last Admin: 04/30/17 01:11 Dose: 30 mg Nicotine (Nicoderm Cq) 1 patch TD DAILY [facility] Last Admin: 04/29/17 11:49 Dose: Not Given - Labs Labs: 04/29/17 06:30 04/29/17 06:30 PT 11.1 SECONDS (9.7-12.2) 04/23/17 08:25 INR 1.0 04/23/17 08:25 APTT 26 SECONDS (21-34) 04/23/17 08:25 - Constitutional Appears: Non-toxic, No Acute Distress - Head Exam Head Exam: ATRAUMATIC, NORMOCEPHALIC - Eye Exam Eye Exam: EOMI, Normal appearance - ENT Exam ENT Exam: Mucous Membranes Moist - Respiratory Exam Respiratory Exam: Clear to Ausculation Bilateral, NORMAL BREATHING PATTERN. absent: Rhonchi, Wheezes, Respiratory Distress - Cardiovascular Exam Cardiovascular Exam: REGULAR RHYTHM, +S1, +S2. absent: Tachycardia, Irregular Rhythm - GI/Abdominal Exam GI & Abdominal Exam: Soft, Normal Bowel Sounds - Extremities Exam Additional comments: Left calcanei ORIF-cast with michelle wrap from knee down to toes with toes exposed, warm Right calcanei ORIF-full cast from knee down to toes - Neurological Exam Neurological Exam: Alert, Awake, Oriented x3 - Psychiatric Exam Psychiatric exam: Normal Affect, Normal Mood - Skin Skin Exam: Dry, Intact, Normal Color, Warm Assessment and Plan - Assessment and Plan (Free Text) Assessment: (1) Bilateral calcaneal fractures Assessment and Plan: 04/28 Foot xray: s/p R ORIF- no definitive displacement or fracture sublaxation noted 04/[address]: comminuted fractures of left and right calcanei, left more severe than right; surrounding soft tissue swelling. left than right ankle mortise intact Podiatry consulted- Dr. Naranjo; help appreciated * s/p left calcaneal ORIF, POD#5 (on 04/25) * s/p left calcaneal ORIF, POD#2 (on 04/28) * Encouraged patient to use incentive spirometer * Podiatry to change splint today * Per PT recommendations, patient should be able to transfer to and from wheelchair independently prior to discharge * cut out worker referral for wheelchair Pain Management: * Tylenol 650mg PO Q6 PRN (mild pain) * Toradol 15mg Q6 PRN (moderate pain) * Toradol 30mg Q6 PRN (severe pain) (2) Tobacco abuse Assessment and Plan: * Discussed tobacco cessation at length. * Nicoderm patch daily. (3) Prophylactic measure Assessment and Plan: * Anitcoagulation Lovenox 40mg SC daily to be continued * Was given one dose of Lovenox on 04/24/17 * Was given one dose of Lovenox on 04/26/17 * Was given one dose of Lovenox on 04/27/17 * No SCDs * Pepcid 20mg PO BID * Regular diet * Fall precautions * Incentive spirometer use enforced <Vern Ryder - Last Filed: 04/30/17 11:46> Objective - Vital Signs/Intake and Output Vital Signs (last 24 hours): Temp Pulse Resp BP Pulse Ox 99.2 F 89 20 117/72 99 04/30/17 07:00 04/30/17 07:00 04/30/17 07:00 04/30/17 07:00 04/30/17 07:00 Intake and Output: 04/30/17 04/30/17 06:59 18:59 Intake Total 300 Balance 300 - Medications Medications: Current Medications Acetaminophen (Tylenol 325mg Tab) 650 mg PO Q6 PRN PRN Reason: Pain, Mild (1-3) Last Admin: 04/26/17 01:01 Dose: 650 mg Acetaminophen (Tylenol 325mg Tab) 650 mg PO Q6 PRN PRN Reason: Fever >100.4 F Docusate Sodium (Colace) 100 mg PO BID [facility] Last Admin: 04/30/17 11:03 Dose: 100 mg Enoxaparin Sodium (Lovenox) 40 mg SC DAILY [facility] Last Admin: 04/30/17 11:02 Dose: 40 mg Famotidine (Pepcid) 20 mg PO BID [facility] Last Admin: 04/30/17 11:02 Dose: 20 mg Ketorolac Tromethamine (Toradol) 15 mg IVP Q6 PRN PRN Reason: Pain, moderate (4-7) Last Admin: 04/24/17 20:22 Dose: 15 mg Ketorolac Tromethamine (Toradol) 30 mg IVP Q6 PRN PRN Reason: Pain, severe (8-10) Last Admin: 04/30/17 09:15 Dose: 30 mg Nicotine (Nicoderm Cq) 1 patch TD DAILY [facility] Last Admin: 04/30/17 11:02 Dose: Not Given - Labs Labs: 04/30/17 08:09 04/30/17 07:17 PT 11.1 SECONDS (9.7-12.2) 04/23/17 08:25 INR 1.0 04/23/17 08:25 APTT 26 SECONDS (21-34) 04/23/17 08:25 Attending/Attestation - Attestation I have personally seen and examined this patient.: Yes I have fully participated in the care of the patient.: Yes I have reviewed all pertinent clinical information, including history, physical exam and plan: Yes Notes (Text): 04/30/17 11:43 Patient was seen and examined at 11:45AM 04/30/17 350 A Exam, assessment and plan were gone over with the resident. Also on ROS: Has not moved his bowels but feels like he will after his bilateral feet dressing changes by Podiatry Surgical Team Burning pain in the bilateral heals comes and goes Assessments: 1). Bilateral Calcaneal Fractures: S/P ORIF Left 04/25/17 and S/P ORIF Right 04/28/[address] Naranjo. Tylenol 650 mg PO Q6H PRN Mild Pain, Toradol 15 mg IV Q6H PRN Moderate Pain, Toradol 30 mg IV Q6H Severe Pain. 2). Hx Tobacco Use: Nicotine Patch 14 mg Q24H 3). Mild Anemia: Likely secondary to blood loss during ORIFs. Hg/Hct are stable. Continue to monitor. 4). Elevated LFTs: Could have been secondary to Toradol use for pain. AST and ALT are now normal. T Bili slightly elevated at 1.4. Continue to monitor. 5). Elevated Bands 04/29/17: NO bands 04/30/17 6). Prophylaxis: Lovenox 40 mg SC 1x/day, Colace 100 mg PO 2x/day, Pepcid 20 mg PO 1x/day, Encouraged Incentive Spirometry use (I also spoke again with MARLA Cavanaugh to make sure that patient was using this throughout the day). I spoke with PT Cinthya 04/29/17: patient will need to demonstrate safe transfer from bed to wheelchair and back again prior to discharging patient. I spoke with Podiatry Resident Dr. James 04/30/17: patient will need to be NON -weightbearing for 6 to 8 weeks. Bag Machine Helper will need to help arrange for wheelchair for patient if patient's female friend (who is a Physical Therapist) can not procure one for him. Vern Ryder D.O. 04/30/17 11:45
[2017-04-30 08:08] LABS: ALKALINE PHOSPHATASE 62 U/L (38-126); ALT/SGPT 72 U/L (21-72); AST/SGOT 42 U/L (17-59); BILIRUBIN,TOTAL 0.9 mg/dL (0.2-1.3); BLOOD UREA NITROGEN 6 mg/dL (9-20); CALCIUM 8.3 mg/dl (8.6-10.4); CARBON DIOXIDE 29 mmol/L (22-30); CHLORIDE 101 mmol/L (98-107); GFR AFRICAN-AMERICAN > 60; GLUCOSE,RANDOM 116 mg/dL (75-110); POTASSIUM 4.2 mmol/L (3.6-5.2); SODIUM 137 mmol/L (132-148)
[2017-04-30 08:22] LABS: BASO % 0.5 % (0.0-2.0); EOS # 0.1 K/uL (0.0-0.7); LYMPH # 0.9 K/uL (1.0-4.3); LYMPH % 11.8 % (20.0-40.0); MEAN CELL VOLUME 89.2 fL (80.0-94.0); MEAN CORPUSCULAR HEMOGLOBIN 30.5 pg (27.0-31.0); MEAN CORPUSCULAR HGB CONC 34.2 g/dL (33.0-37.0); MEAN PLATELET VOLUME 8.7 fL (7.2-11.7); MONO # 0.8 K/uL (0.0-0.8); MONO % 11.4 % (0.0-10.0); RED CELL DISTRIBUTION WIDTH 12.2 % (11.5-14.5); WHITE BLOOD COUNT 7.3 K/uL (4.8-10.8)
--- NOTE | 2017-04-30 09:45 | CP.PCM.PN ---
Subjective - Date & Time of Evaluation Date of Evaluation: 04/30/17 Time of Evaluation: 09:45 - Subjective Subjective: Podiatry Progress Note - Dr. Naranjo 26 year old male patient seen and evaluated at bedside POD#2 right calcaneus ORIF and POD#5 left calcaneus ORIF. Patient hemodynamically stable and NAD. Denies any acute events overnight. Patient denies feeling feverish today. Patient reports continued mild pain to bilateral feet, well-controlled. Patient admits that he has been using the incentive spirometer more frequently, about every hour. Patient states he has yet to have a bowel movement. Denies N/V/F/D/C /SOB/calf pain. Offers no other pedal complaints at this time. Objective - Vital Signs/Intake and Output Vital Signs (last 24 hours): Temp Pulse Resp BP Pulse Ox 99.2 F 89 20 117/72 99 04/30/17 07:00 04/30/17 07:00 04/30/17 07:00 04/30/17 07:00 04/30/17 07:00 Intake and Output: 04/30/17 04/30/17 06:59 18:59 Intake Total 300 Balance 300 - Medications Medications: Current Medications Acetaminophen (Tylenol 325mg Tab) 650 mg PO Q6 PRN PRN Reason: Pain, Mild (1-3) Last Admin: 04/26/17 01:01 Dose: 650 mg Acetaminophen (Tylenol 325mg Tab) 650 mg PO Q6 PRN PRN Reason: Fever >100.4 F Docusate Sodium (Colace) 100 mg PO BID [facility] Last Admin: 04/29/17 17:20 Dose: 100 mg Enoxaparin Sodium (Lovenox) 40 mg SC DAILY [facility] Last Admin: 04/29/17 11:52 Dose: 40 mg Famotidine (Pepcid) 20 mg PO BID [facility] Last Admin: 04/29/17 17:20 Dose: 20 mg Ketorolac Tromethamine (Toradol) 15 mg IVP Q6 PRN PRN Reason: Pain, moderate (4-7) Last Admin: 04/24/17 20:22 Dose: 15 mg Ketorolac Tromethamine (Toradol) 30 mg IVP Q6 PRN PRN Reason: Pain, severe (8-10) Last Admin: 04/30/17 09:15 Dose: 30 mg Nicotine (Nicoderm Cq) 1 patch TD DAILY [facility] Last Admin: 04/29/17 11:49 Dose: Not Given - Labs Labs: 04/30/17 08:09 04/30/17 07:17 PT 11.1 SECONDS (9.7-12.2) 04/23/17 08:25 INR 1.0 04/23/17 08:25 APTT 26 SECONDS (21-34) 04/23/17 08:25 - Constitutional Appears: Well, Non-toxic, No Acute Distress - Extremities Exam Additional comments: Posterior splints to bilateral LE appear clean/dry/intact with no strikethrough noted. Vasc: DP pulses palpable 2/4 B/L. PT pulses weakly palpable 1/4 b/l secondary to edema. Temperature gradient is warm to warm B/L. CFT < 3 sec to all digits. Pedal hair present. Non-pitting pedal edema noted extending from perimalleolar region to forefoot b/l. No increase in warmth noted to surgical incisions b/l. Neuro: Gross sensation intact b/l. Increased sensitivity to dorsum of foot b/l. Derm: Surgical incisions noted to medial and lateral calcaneus b/l appear well- coapted with sutures intact and no wound dehiscence noted; mild maceration noted to lateral incisions b/l. Sanguinous drainage noted to left lateral incision. Ecchymosis noted to bases of digits b/l. Ortho: Tenderness on palpation surgical incisions b/l. Active ROM of digits 1-5 b/l without difficulty. - Neurological Exam Neurological Exam: Alert, Awake, Oriented x3 - Psychiatric Exam Psychiatric exam: Normal Affect, Normal Mood Assessment and Plan - Assessment and Plan (Free Text) Assessment: 26 y/o male with bilateral comminuted calcaneal fractures secondary to trauma POD#5 left calcaneal ORIF (DOS: 04/25/17) POD#2 right calcaneal ORIF (DOS: 04/28/17) Plan: Patient seen and evaluated Discussed with attending, Dr. Naranjo Patient afebrile currently, will continue to monitor -Tylenol prn fever WBC wnl 7.3 today, decreased from 10.0 yesterday Pt stable, no complications to bilateral post-op. - Pt to remain on bedrest, with posterior splints intact. - Betadine applied to surgical incisions b/l and dressed with DSD. Posterior splint reapplied b/l. Per PT recommendations, patient should be able to transfer to and from wheelchair independently prior to discharge Continue pain mgmt Colace for constipation Advise patient to continue use of incentive spirometer every hour Podiatry will continue to follow patient while in house
[2017-04-30] MEDS: Enoxaparin 40 mg Syringe SC SCH (11:02)
--- NOTE | 2017-05-01 06:59 | CP.PCM.PN ---
<Tamera Le - Last Filed: 05/01/17 13:45> Subjective - Date & Time of Evaluation Date of Evaluation: 05/01/17 Time of Evaluation: 06:59 - Subjective Subjective: Medicine Progress Note for Dr. Ho Patient was seen and examined at bedside in no acute distress. Patient reports having some pain overnight, but the pain medication help and he currently denies having pain. Patient reports eating well and having normal bowel movements. He states he has been using the incentive spirometer regularly. Patient denies having chest pain, abdominal pain, shortness of breath, nausea, vomiting, fevers, and headaches. Objective - Vital Signs/Intake and Output Vital Signs (last 24 hours): Temp Pulse Resp BP Pulse Ox 99.2 F 81 20 100/60 98 05/01/17 00:00 05/01/17 00:00 05/01/17 00:00 05/01/17 00:00 05/01/17 00:00 Intake and Output: 04/30/17 05/01/17 18:59 06:59 Intake Total 1680 240 Output Total 650 Balance 1680 -410 - Medications Medications: Current Medications Acetaminophen (Tylenol 325mg Tab) 650 mg PO Q6 PRN PRN Reason: Pain, Mild (1-3) Last Admin: 04/26/17 01:01 Dose: 650 mg Acetaminophen (Tylenol 325mg Tab) 650 mg PO Q6 PRN PRN Reason: Fever >100.4 F Docusate Sodium (Colace) 100 mg PO BID [facility] Last Admin: 04/30/17 18:05 Dose: 100 mg Enoxaparin Sodium (Lovenox) 40 mg SC DAILY [facility] Last Admin: 04/30/17 11:02 Dose: 40 mg Famotidine (Pepcid) 20 mg PO BID [facility] Last Admin: 04/30/17 18:05 Dose: 20 mg Ketorolac Tromethamine (Toradol) 15 mg IVP Q6 PRN PRN Reason: Pain, moderate (4-7) Last Admin: 04/24/17 20:22 Dose: 15 mg Ketorolac Tromethamine (Toradol) 30 mg IVP Q6 PRN PRN Reason: Pain, severe (8-10) Last Admin: 05/01/17 05:05 Dose: 30 mg Nicotine (Nicoderm Cq) 1 patch TD DAILY [facility] Last Admin: 04/30/17 11:02 Dose: Not Given - Labs Labs: 04/30/17 08:09 04/30/17 07:17 PT 11.1 SECONDS (9.7-12.2) 04/23/17 08:25 INR 1.0 04/23/17 08:25 APTT 26 SECONDS (21-34) 04/23/17 08:25 - Additional Findings Additional findings: - Constitutional Appears: No Acute Distress - Head Exam Head Exam: ATRAUMATIC, NORMAL INSPECTION - Eye Exam Eye Exam: EOMI, Normal appearance - ENT Exam ENT Exam: Mucous Membranes Moist - Respiratory Exam Respiratory Exam: Clear to Ausculation Bilateral, NORMAL BREATHING PATTERN. absent: Rales, Rhonchi, Wheezes, Respiratory Distress - Cardiovascular Exam Cardiovascular Exam: REGULAR RHYTHM, +S1, +S2 - GI/Abdominal Exam GI & Abdominal Exam: Soft, Normal Bowel Sounds. absent: Distended, Firm, Guarding, Tenderness - Extremities Exam Extremities Exam: Tenderness (s/p left and right calcanei ORIF-casts with michelle wrap from knee down to toes. Toes exposed; patient able to move toes; sensation intact) - Neurological Exam Neurological Exam: Alert, Awake, Oriented x3 - Psychiatric Exam Psychiatric exam: Normal Affect, Normal Mood - Skin Skin Exam: Dry, Intact, Normal Color, Warm Assessment and Plan (1) Bilateral calcaneal fractures Status: Acute (2) Tobacco abuse Status: Acute (3) Elevated transaminase level Status: Acute (4) Prophylactic measure Status: Acute - Assessment and Plan (Free Text) Plan: (1) Bilateral calcaneal fractures Assessment and Plan: Foot xray: follow up official report Ankle xray: follow up official report Given one dose of Lovenox on 04/24/17. LE CT: comminuted fractures of left and right calcanei, left more severe than right; surrounding soft tissue swelling. left than right ankle mortise intact Podiatry consulted- Dr. Naranjo; help appreciated * Patient s/p left calcaneal ORIF, POD#6 * Patient s/p Right calcaneal ORIF, POD#3 * Continue PT/OT Preop: * CXR: no acute infiltrates; nodular density of left upper lung field, could represent 1st rib artifact or tiny granuloma; suggests repeat in 2 months * EKG: follow up official report * PT 11.1; INR 1.0; PTT 26 * CBC: WBC 14.6; Hgb 14.1, Hct 41.6, Platelets 230 * CMP within normal limits Pain Management: * Discontinued Morphine 1mg IV Q6prn started for pain * Discontinued Tylenol 650mg PO Q6 PRN (mild pain) due to elevated transaminases * Discontinued Toradol 15mg Q6 PRN (moderate pain) due to elevated transaminases * Discontinued Toradol 30mg Q6 PRN (severe pain) due to elevated transaminases Status: Acute (2) Tobacco abuse Assessment and Plan: * Discussed tobacco cessation at length. * Nicoderm patch started. Status: Acute (3) Elevated transaminase level Assessment and Plan: * Discontinued Tylenol and Toradol * Continue to monitor/trend AST/ALT (4) Prophylactic measure Assessment and Plan: * Anitcoagulation held at this time- plan to go to OR as per podiatry * Was given one dose of Lovenox on 04/24/17 * Was given one dose of Lovenox on 04/26/17 * Was given one dose of Lovenox on 04/27/17 * No SCDs- LE swelling * Pepcid 20mg IV BID * Regular diet * Fall precautions * Incentive spirometer Q1 * PT/OT Status: Acute <Nasrin Ho V - Last Filed: 05/01/17 16:52> Objective - Vital Signs/Intake and Output Vital Signs (last 24 hours): Temp Pulse Resp BP Pulse Ox 98.4 F 68 20 101/66 98 05/01/17 15:05 05/01/17 15:05 05/01/17 15:05 05/01/17 15:05 05/01/17 15:05 Intake and Output: 05/01/17 05/01/17 06:59 18:59 Intake Total 240 450 Output Total 650 350 Balance -410 100 - Medications Medications: Current Medications Docusate Sodium (Colace) 100 mg PO BID [facility] Last Admin: 05/01/17 09:51 Dose: 100 mg Enoxaparin Sodium (Lovenox) 40 mg SC DAILY [facility] Last Admin: 05/01/17 09:51 Dose: 40 mg Famotidine (Pepcid) 20 mg PO BID [facility] Last Admin: 05/01/17 09:51 Dose: 20 mg Ibuprofen (Motrin Tab) 600 mg PO TID PRN PRN Reason: Pain, moderate (4-7) Last Admin: 05/01/17 14:59 Dose: 600 mg Nicotine (Nicoderm Cq) 1 patch TD DAILY [facility] Last Admin: 05/01/17 09:55 Dose: Not Given - Labs Labs: 05/01/17 07:05 05/01/17 07:05 PT 11.1 SECONDS (9.7-12.2) 04/23/17 08:25 INR 1.0 04/23/17 08:25 APTT 26 SECONDS (21-34) 04/23/17 08:25 Attending/Attestation - Attestation I have personally seen and examined this patient.: Yes I have fully participated in the care of the patient.: Yes I have reviewed all pertinent clinical information, including history, physical exam and plan: Yes Notes (Text): Patient seen, examined, and case discussed with day-time resident. Patient seen for second time by myself since his initial admission. Patient seen at bedside with his best friend at bedside. Patient tolerating food cooked by his friends at bedside. Patient denies acute complaints except for pain. Patient to be non-weight bearing for at least 6-8 weeks, which patient understands it is close to 2 months. Patient reports he has a friend, only a friend, who is physical therapist who is willing to help with the exercise whenever he is ready for discharge. Patient declined to work with physical therapy noting pain. Tylenol discontinued this morning secondary to transaminitis. Will follow-up liver function tests. Assessment/Plan (1) Bilateral calcaneal fractures Assessment and Plan: * Podiatry consulted- Dr. Naranjo; help appreciated * Foot xray (04/23/17): Comminuted fractures of the right and left calcnai with surrounding soft tissue swelling. * Foot xray (04/25/17): status post open reduction internal fixation of the previously described comminuted calcaneal fracture * Foot xray (04/28/17): says ORIF right calcanela fracture reduction. No interveal definite fracture subluxation or dislocation appreciable * Ankle xray (04/23/17): comminuted fractures of the right and left calcanei on with surrounding soft tissue swelling * Given one dose of Lovenox on 04/24/17. * LE CT: comminuted fractures of left and right calcanei, left more severe than right; surrounding soft tissue swelling. left than right ankle mortise intact * Patient s/p left calcaneal ORIF, POD#6 * Patient s/p Right calcaneal ORIF, POD#3 * Continue PT/OT Preop: * CXR: no acute infiltrates; nodular density of left upper lung field, could represent 1st rib artifact or tiny granuloma; suggests repeat in 2 months * EKG: follow up official report * PT 11.1; INR 1.0; PTT 26 * CBC: WBC 14.6; Hgb 14.1, Hct 41.6, Platelets 230 * CMP within normal limits Status: Acute (2) Tobacco abuse Assessment and Plan: * Discussed tobacco cessation at length. * Nicoderm patch started on admission * Patient verbalized he will not smoke and understands the consequences. Status: Acute (3) Elevated transaminase level Assessment and Plan: * Discontinued Tylenol and Toradol * Continue to monitor/trend AST/ALT Status: Acute (4) Prophylactic measure Assessment and Plan: * Lovenox 40mg subqdaily post-operative * No SCDs- LE swelling * Pepcid 20mg PO BID * Regular diet * Fall precautions * Incentive spirometer Q1 * Colace 100mg PO BID * PT/OT Status: Acute Disposition: Pending physical therapy and podiatry to determine when patient is stable for discharge.
[2017-05-01 07:14] LABS: BASO % 0.6 % (0.0-2.0); EOS # 0.1 K/uL (0.0-0.7); EOS % 2.6 % (0.0-4.0); HEMATOCRIT 29.4 % (35.0-51.0); LYMPH # 0.9 K/uL (1.0-4.3); LYMPH % 16.1 % (20.0-40.0); MEAN CELL VOLUME 89.1 fL (80.0-94.0); MEAN CORPUSCULAR HEMOGLOBIN 30.6 pg (27.0-31.0); MEAN CORPUSCULAR HGB CONC 34.4 g/dL (33.0-37.0); MEAN PLATELET VOLUME 8.7 fL (7.2-11.7); MONO # 0.7 K/uL (0.0-0.8); NRBC % 0.1 % (0.0-2.0); WHITE BLOOD COUNT 5.5 K/uL (4.8-10.8)
[2017-05-01 07:55] LABS: ALB/GLOB RATIO 1.2 (1.0-2.1); ALKALINE PHOSPHATASE 64 U/L (38-126); ALT/SGPT 125 U/L (21-72); AST/SGOT 96 U/L (17-59); BILIRUBIN,TOTAL 0.8 mg/dL (0.2-1.3); BLOOD UREA NITROGEN 7 mg/dL (9-20); CALCIUM 8.4 mg/dl (8.6-10.4); CARBON DIOXIDE 29 mmol/L (22-30); CHLORIDE 101 mmol/L (98-107); GFR AFRICAN-AMERICAN > 60; GLUCOSE,RANDOM 112 mg/dL (75-110); POTASSIUM 4.3 mmol/L (3.6-5.2); SODIUM 137 mmol/L (132-148); TOTAL PROTEIN 6.1 g/dL (6.3-8.3)
[2017-05-01] MEDS: Enoxaparin 40 mg Syringe SC SCH (09:51)
--- NOTE | 2017-05-01 10:34 | CP.PCM.PN ---
Subjective - Date & Time of Evaluation Date of Evaluation: 05/01/17 Time of Evaluation: 10:33 - Subjective Subjective: RX FOR WHEELCHAIR WITH [employer] PROVIDED TO POCKET MARKER KIRTI Palacios PER PHY THER RECOMMENDATIONS. NO FURTHER ORDERS BY [employer]. Objective - Vital Signs/Intake and Output Vital Signs (last 24 hours): Temp Pulse Resp BP Pulse Ox 98.2 F 84 20 107/61 96 05/01/17 07:38 05/01/17 07:38 05/01/17 07:38 05/01/17 07:38 05/01/17 07:38 Intake and Output: 05/01/17 05/01/17 06:59 18:59 Intake Total 240 Output Total 650 Balance -410 - Medications Medications: Current Medications Docusate Sodium (Colace) 100 mg PO BID [facility] Last Admin: 05/01/17 09:51 Dose: 100 mg Enoxaparin Sodium (Lovenox) 40 mg SC DAILY [facility] Last Admin: 05/01/17 09:51 Dose: 40 mg Famotidine (Pepcid) 20 mg PO BID [facility] Last Admin: 05/01/17 09:51 Dose: 20 mg Nicotine (Nicoderm Cq) 1 patch TD DAILY [facility] Last Admin: 05/01/17 09:55 Dose: Not Given - Labs Labs: 05/01/17 07:05 05/01/17 07:05 PT 11.1 SECONDS (9.7-12.2) 04/23/17 08:25 INR 1.0 04/23/17 08:25 APTT 26 SECONDS (21-34) 04/23/17 08:25
--- NOTE | 2017-05-01 15:42 | CP.PCM.PN ---
Subjective - Date & Time of Evaluation Date of Evaluation: 05/01/17 Time of Evaluation: 15:40 - Subjective Subjective: Podiatry Progress Note - Dr. Naranjo 26 year old male patient seen and evaluated at bedside POD#3 right calcaneus ORIF and POD#4 left calcaneus ORIF. Patient hemodynamically stable and NAD. Denies any acute events overnight. Patient reports continued mild, but well controlled, 4/10 pain to bilateral feet. Patient admits that he has been using the incentive spirometer every hour. Patient states he has had a bowel movement. Pt states he is progressing transition form bed to wheelchair. Denies N/V/F/D/C/SOB/calf pain. Offers no other pedal complaints at this time. Objective - Vital Signs/Intake and Output Vital Signs (last 24 hours): Temp Pulse Resp BP Pulse Ox 98.2 F 84 20 107/61 96 05/01/17 07:38 05/01/17 07:38 05/01/17 07:38 05/01/17 07:38 05/01/17 07:38 Intake and Output: 05/01/17 05/01/17 06:59 18:59 Intake Total 240 Output Total 650 Balance -410 - Medications Medications: Current Medications Docusate Sodium (Colace) 100 mg PO BID [facility] Last Admin: 05/01/17 09:51 Dose: 100 mg Enoxaparin Sodium (Lovenox) 40 mg SC DAILY [facility] Last Admin: 05/01/17 09:51 Dose: 40 mg Famotidine (Pepcid) 20 mg PO BID [facility] Last Admin: 05/01/17 09:51 Dose: 20 mg Ibuprofen (Motrin Tab) 600 mg PO TID PRN PRN Reason: Pain, moderate (4-7) Last Admin: 05/01/17 14:59 Dose: 600 mg Nicotine (Nicoderm Cq) 1 patch TD DAILY [facility] Last Admin: 05/01/17 09:55 Dose: Not Given - Labs Labs: 05/01/17 07:05 05/01/17 07:05 PT 11.1 SECONDS (9.7-12.2) 04/23/17 08:25 INR 1.0 04/23/17 08:25 APTT 26 SECONDS (21-34) 04/23/17 08:25 - Constitutional Appears: Well, Non-toxic, No Acute Distress - Extremities Exam Additional comments: Posterior splints to bilateral LE appear clean/dry/intact with no strikethrough noted. Vasc: DP pulses palpable 2/4 B/L. PT pulses weakly palpable 1/4 b/l secondary to edema. Temperature gradient is warm to warm B/L. CFT < 3 sec to all digits. Pedal hair present. Non-pitting pedal edema noted extending from perimalleolar region to forefoot b/l. No increase in warmth noted to surgical incisions b/l. Neuro: Gross sensation intact b/l. Increased sensitivity to dorsum of foot b/l. Derm: Surgical incisions noted to medial and lateral calcaneus b/l appear well- coapted with sutures intact and no wound dehiscence noted; mild maceration noted to lateral incisions b/l. Sanguinous drainage noted to left lateral incision. Ecchymosis noted to bases of digits b/l. Ortho: Tenderness on palpation surgical incisions b/l. Active ROM of digits 1-5 b/l without difficulty. - Neurological Exam Neurological Exam: Alert, Normal Gait, Oriented x3 - Psychiatric Exam Psychiatric exam: Normal Affect, Normal Mood Assessment and Plan - Assessment and Plan (Free Text) Assessment: 26 y/o male with bilateral comminuted calcaneal fractures secondary to trauma POD#6 left calcaneal ORIF (DOS: 04/25/17) POD#3 right calcaneal ORIF (DOS: 04/28/17) Plan: Patient seen and evaluated with attending, Dr. Naranjo. Pt stable, no complications to bilateral post-op. - Pt to remain NWB to bilaterally lower extremity with use of wheelchair. - Continue transition activity an passive ROM physical therapy. - Posterior splints left intact bilaterally. Continue pain mgmt Colace for constipation Advise patient to continue use of incentive spirometer every hour Podiatry will continue to follow patient while in house
[2017-05-02 06:34] LABS: BASO # 0.1 K/uL (0.0-0.2); BASO % 0.9 % (0.0-2.0); EOS # 0.2 K/uL (0.0-0.7); EOS % 2.9 % (0.0-4.0); HEMATOCRIT 30.8 % (35.0-51.0); LYMPH # 1.3 K/uL (1.0-4.3); MEAN CORPUSCULAR HEMOGLOBIN 29.8 pg (27.0-31.0); MEAN CORPUSCULAR HGB CONC 33.5 g/dL (33.0-37.0); MEAN PLATELET VOLUME 8.6 fL (7.2-11.7); MONO # 0.7 K/uL (0.0-0.8); RED CELL DISTRIBUTION WIDTH 12.3 % (11.5-14.5); WHITE BLOOD COUNT 6.4 K/uL (4.8-10.8)
[2017-05-02 06:54] LABS: ALB/GLOB RATIO 0.9 (1.0-2.1); ALKALINE PHOSPHATASE 68 U/L (38-126); ALT/SGPT 153 U/L (21-72); AST/SGOT 78 U/L (17-59); BILIRUBIN,TOTAL 0.6 mg/dL (0.2-1.3); BLOOD UREA NITROGEN 9 mg/dL (9-20); CALCIUM 8.5 mg/dl (8.6-10.4); CARBON DIOXIDE 31 mmol/L (22-30); CHLORIDE 102 mmol/L (98-107); GFR AFRICAN-AMERICAN > 60; GLUCOSE,RANDOM 96 mg/dL (75-110); POTASSIUM 4.5 mmol/L (3.6-5.2); SODIUM 138 mmol/L (132-148); TOTAL PROTEIN 7.5 g/dL (6.3-8.3)
--- NOTE | 2017-05-02 06:54 | CP.PCM.PN ---
<Nasrin Ho V - Last Filed: 05/02/17 15:59> Objective - Vital Signs/Intake and Output Vital Signs (last 24 hours): Temp Pulse Resp BP Pulse Ox 97.8 F 79 20 114/72 100 05/02/17 08:00 05/02/17 08:00 05/02/17 08:00 05/02/17 08:00 05/02/17 08:00 Intake and Output: 05/02/17 05/02/17 06:59 18:59 Intake Total 950 400 Output Total 600 1500 Balance 350 -1100 - Medications Medications: Current Medications Docusate Sodium (Colace) 100 mg PO BID [facility] Last Admin: 05/02/17 09:28 Dose: 100 mg Enoxaparin Sodium (Lovenox) 40 mg SC DAILY [facility] Last Admin: 05/02/17 09:28 Dose: 40 mg Famotidine (Pepcid) 20 mg PO BID [facility] Last Admin: 05/02/17 09:28 Dose: 20 mg Ibuprofen (Motrin Tab) 600 mg PO TID PRN PRN Reason: Pain, moderate (4-7) Last Admin: 05/02/17 09:28 Dose: 600 mg Nicotine (Nicoderm Cq) 1 patch TD DAILY [facility] Last Admin: 05/02/17 14:08 Dose: Not Given - Labs Labs: 05/02/17 06:24 05/02/17 06:24 PT 11.1 SECONDS (9.7-12.2) 04/23/17 08:25 INR 1.0 04/23/17 08:25 APTT 26 SECONDS (21-34) 04/23/17 08:25 Attending/Attestation - Attestation I have personally seen and examined this patient.: Yes I have fully participated in the care of the patient.: Yes I have reviewed all pertinent clinical information, including history, physical exam and plan: Yes Notes (Text): Patient seen, examined, and case discussed with day-time resident. Patient seen at bedside with his best friend at bedside. Patient tolerating food cooked by his friends at bedside. Patient denies acute complaints. Patient reports pain is better control, only uses pain medication when he needs. Patient is eager to go home. Awaiting to hear his progress with physical therapy. Advised his PMD, Dr. Gogo Ryder in regards to update while in the hospital. Patient to be non-weight bearing for at least 6-8 weeks, which patient understands it is close to 2 months. Patient is eager for ski season in June; would follow-up with podiatry in regards when patient is advised to resume activities. Patient is aware winter is coming tra[place] in light of snow, ice, and rain in regards to his current injury. Liver functions tests improving. Assessment/Plan (1) Bilateral calcaneal fractures Assessment and Plan: * Podiatry consulted- Dr. Naranjo; help appreciated * Foot xray (04/23/17): Comminuted fractures of the right and left calcnai with surrounding soft tissue swelling. * Foot xray (04/25/17): status post open reduction internal fixation of the previously described comminuted calcaneal fracture * Foot xray (04/28/17): says ORIF right calcanela fracture reduction. No interveal definite fracture subluxation or dislocation appreciable * Ankle xray (04/23/17): comminuted fractures of the right and left calcanei on with surrounding soft tissue swelling * Given one dose of Lovenox on 04/24/17. * LE CT: comminuted fractures of left and right calcanei, left more severe than right; surrounding soft tissue swelling. left than right ankle mortise intact * Patient s/p left calcaneal ORIF, POD#7 * Patient s/p Right calcaneal ORIF, POD#4 * Continue PT/OT Preop: * CXR: no acute infiltrates; nodular density of left upper lung field, could represent 1st rib artifact or tiny granuloma; suggests repeat in 2 months * EKG: follow up official report * PT 11.1; INR 1.0; PTT 26 * CBC: WBC 14.6; Hgb 14.1, Hct 41.6, Platelets 230 * CMP within normal limits Status: Acute (2) Tobacco abuse Assessment and Plan: * Discussed tobacco cessation at length. * Nicoderm patch started on admission * Patient verbalized he will not smoke and understands the consequences. Status: Acute (3) Elevated transaminase level Assessment and Plan: * Discontinued Tylenol and Toradol * Continue to monitor/trend AST/ALT Status: Acute (4) Prophylactic measure Assessment and Plan: * Lovenox 40mg subqdaily post-operative * No SCDs- LE swelling * Pepcid 20mg PO BID * Regular diet * Fall precautions * Incentive spirometer Q1 * Colace 100mg PO BID * PT/OT Status: Acute Disposition: Pending physical therapy and podiatry to determine when patient is stable for discharge. <Tamera Le - Last Filed: 05/02/17 17:54> Subjective - Date & Time of Evaluation Date of Evaluation: 05/02/17 Time of Evaluation: 06:54 - Subjective Subjective: Medicine Progress Note for Dr. Ho Patient was seen and examined at bedside in no acute distress. Patient reports the pain is currently manageable and minimal. He states he took pain medication overnight, but he is trying to take less medication. Patient reports eating well. Patient denies chest pain, abdominal pain, nausea, vomiting, fevers, headache, diarrhea, and constipation. Objective - Vital Signs/Intake and Output Vital Signs (last 24 hours): Temp Pulse Resp BP Pulse Ox 99.3 F 98 H 20 101/62 96 05/02/17 00:00 05/02/17 00:00 05/02/17 00:00 05/02/17 00:00 05/02/17 00:00 Intake and Output: 05/01/17 05/02/17 18:59 06:59 Intake Total 450 950 Output Total 350 600 Balance 100 350 - Medications Medications: Current Medications Docusate Sodium (Colace) 100 mg PO BID [facility] Last Admin: 05/01/17 17:31 Dose: 100 mg Enoxaparin Sodium (Lovenox) 40 mg SC DAILY [facility] Last Admin: 05/01/17 09:51 Dose: 40 mg Famotidine (Pepcid) 20 mg PO BID [facility] Last Admin: 05/01/17 17:30 Dose: 20 mg Ibuprofen (Motrin Tab) 600 mg PO TID PRN PRN Reason: Pain, moderate (4-7) Last Admin: 05/01/17 23:58 Dose: 600 mg Nicotine (Nicoderm Cq) 1 patch TD DAILY [facility] Last Admin: 05/01/17 09:55 Dose: Not Given - Labs Labs: 05/02/17 06:24 05/01/17 07:05 PT 11.1 SECONDS (9.7-12.2) 04/23/17 08:25 INR 1.0 04/23/17 08:25 APTT 26 SECONDS (21-34) 04/23/17 08:25 - Additional Findings Additional findings: - Constitutional Appears: No Acute Distress - Head Exam Head Exam: ATRAUMATIC, NORMAL INSPECTION - Eye Exam Eye Exam: EOMI, Normal appearance - ENT Exam ENT Exam: Mucous Membranes Moist - Respiratory Exam Respiratory Exam: Clear to Ausculation Bilateral, NORMAL BREATHING PATTERN. absent: Rales, Rhonchi, Wheezes, Respiratory Distress - Cardiovascular Exam Cardiovascular Exam: REGULAR RHYTHM, +S1, +S2 - GI/Abdominal Exam GI & Abdominal Exam: Soft, Normal Bowel Sounds. absent: Distended, Firm, Guarding, Tenderness - Extremities Exam Extremities Exam: Tenderness (s/p left and right calcanei ORIF-casts with michelle wrap from knee down to toes. Toes exposed; patient able to move toes and legs; sensation intact) - Neurological Exam Neurological Exam: Alert, Awake, Oriented x3 - Psychiatric Exam Psychiatric exam: Normal Affect, Normal Mood - Skin Skin Exam: Dry, Intact, Normal Color, Warm Assessment and Plan (1) Bilateral calcaneal fractures Status: Acute (2) Tobacco abuse Status: Acute (3) Elevated transaminase level Status: Acute (4) Prophylactic measure Status: Acute - Assessment and Plan (Free Text) Plan: (1) Bilateral calcaneal fractures Assessment and Plan: Foot xray: comminuted fractures of the right and left calcanei with surrounding soft tissue swelling. Ankle xray: comminuted fractures of the right and left calcanei with surrounding soft tissue swelling. Given one dose of Lovenox on 04/24/17. LE CT: comminuted fractures of left and right calcanei, left more severe than right; surrounding soft tissue swelling. left than right ankle mortise intact Podiatry consulted- Dr. Naranjo; help appreciated * Patient s/p left calcaneal ORIF, POD#7 * Patient s/p Right calcaneal ORIF, POD#4 * Continue PT/OT Preop: * CXR: no acute infiltrates; nodular density of left upper lung field, could represent 1st rib artifact or tiny granuloma; suggests repeat in 2 months * EKG: follow up official report * PT 11.1; INR 1.0; PTT 26 * CBC: WBC 14.6; Hgb 14.1, Hct 41.6, Platelets 230 * CMP within normal limits Pain Management: * Discontinued Morphine 1mg IV Q6prn started for pain * Discontinued Tylenol 650mg PO Q6 PRN (mild pain) due to elevated transaminases * Discontinued Toradol 15mg Q6 PRN (moderate pain) due to elevated transaminases * Discontinued Toradol 30mg Q6 PRN (severe pain) due to elevated transaminases Status: Acute (2) Tobacco abuse Assessment and Plan: * Discussed tobacco cessation at length. * Nicoderm patch started. Status: Acute (3) Elevated transaminase level Assessment and Plan: * Discontinued Tylenol and Toradol * Continue to monitor/trend AST/ALT--> improving (4) Prophylactic measure Assessment and Plan: * Anitcoagulation held at this time- plan to go to OR as per podiatry * Was given one dose of Lovenox on 04/24/17 * Was given one dose of Lovenox on 04/26/17 * Was given one dose of Lovenox on 04/27/17 * No SCDs- LE swelling * Pepcid 20mg IV BID * Regular diet * Fall precautions * Incentive spirometer Q1 * PT/OT Status: Acute Disposition: Pending physical therapy and podiatry to determine when patient is stable for discharge. Patient must be able independently transfer from bed to wheelchair.
[2017-05-02] MEDS: Enoxaparin 40 mg Syringe SC SCH (09:28)
--- NOTE | 2017-05-02 11:28 | CP.PCM.PN ---
Subjective - Date & Time of Evaluation Date of Evaluation: 05/02/17 Time of Evaluation: 09:10 - Subjective Subjective: Podiatry Progress Note - Dr. Naranjo 26 year old male patient seen and evaluated at bedside POD#4 right calcaneus ORIF and POD#7 left calcaneus ORIF. Patient hemodynamically stable and NAD. Denies any acute events overnight. Patient reports continued mild, but well controlled, 3/10 pain to bilateral feet. Patient admits that he has been using the incentive spirometer every hour. Pt states he is progressing well with transition from bed to wheelchair, and with wheelchair use. Denies N/V/F/D/C/SOB /calf pain. Offers no other pedal complaints at this time. Objective - Vital Signs/Intake and Output Vital Signs (last 24 hours): Temp Pulse Resp BP Pulse Ox 97.8 F 79 20 114/72 100 05/02/17 08:00 05/02/17 08:00 05/02/17 08:00 05/02/17 08:00 05/02/17 08:00 Intake and Output: 05/02/17 05/02/17 06:59 18:59 Intake Total 950 Output Total 600 Balance 350 - Medications Medications: Current Medications Docusate Sodium (Colace) 100 mg PO BID [facility] Last Admin: 05/02/17 09:28 Dose: 100 mg Enoxaparin Sodium (Lovenox) 40 mg SC DAILY [facility] Last Admin: 05/02/17 09:28 Dose: 40 mg Famotidine (Pepcid) 20 mg PO BID [facility] Last Admin: 05/02/17 09:28 Dose: 20 mg Ibuprofen (Motrin Tab) 600 mg PO TID PRN PRN Reason: Pain, moderate (4-7) Last Admin: 05/02/17 09:28 Dose: 600 mg Nicotine (Nicoderm Cq) 1 patch TD DAILY [facility] Last Admin: 05/01/17 09:55 Dose: Not Given - Labs Labs: 05/02/17 06:24 05/02/17 06:24 PT 11.1 SECONDS (9.7-12.2) 04/23/17 08:25 INR 1.0 04/23/17 08:25 APTT 26 SECONDS (21-34) 04/23/17 08:25 - Constitutional Appears: Well, Non-toxic, Toxic - Extremities Exam Additional comments: Posterior splints to bilateral LE appear clean/dry/intact. NVSI to distal digits x10 Active ROM noted to digits x10 No pain on palpation of calf b/l - Neurological Exam Neurological Exam: Alert, Awake, Oriented x3 Assessment and Plan - Assessment and Plan (Free Text) Assessment: 26 y/o male with bilateral comminuted calcaneal fractures secondary to trauma POD#7 left calcaneal ORIF (DOS: 04/25/17) POD#4 right calcaneal ORIF (DOS: 04/28/17) Plan: Patient seen and evaluated. Discussed with attending, Dr. Naranjo. Pt stable, no complications to bilateral post-op. - Pt to remain NWB to bilaterally lower extremity with use of wheelchair. - Continue transition activity an passive ROM physical therapy. - Posterior splints left intact bilaterally. Continue pain mgmt. Colace for constipation. Advise patient to continue to use of incentive spirometer every hour. Podiatry will continue to follow patient while in house.
[2017-05-03 06:41] LABS: ALB/GLOB RATIO 1.3 (1.0-2.1); ALKALINE PHOSPHATASE 72 U/L (38-126); ALT/SGPT 132 U/L (21-72); AST/SGOT 52 U/L (17-59); BILIRUBIN,TOTAL 0.5 mg/dL (0.2-1.3); BLOOD UREA NITROGEN 9 mg/dL (9-20); CALCIUM 8.5 mg/dl (8.6-10.4); CARBON DIOXIDE 31 mmol/L (22-30); CHLORIDE 101 mmol/L (98-107); GFR AFRICAN-AMERICAN > 60; GLUCOSE,RANDOM 99 mg/dL (75-110); POTASSIUM 4.6 mmol/L (3.6-5.2); SODIUM 139 mmol/L (132-148); TOTAL PROTEIN 6.4 g/dL (6.3-8.3)
[2017-05-03 06:43] LABS: BASO # 0.1 K/uL (0.0-0.2); BASO % 0.8 % (0.0-2.0); EOS # 0.2 K/uL (0.0-0.7); EOS % 2.7 % (0.0-4.0); HEMATOCRIT 31.4 % (35.0-51.0); LYMPH # 1.2 K/uL (1.0-4.3); LYMPH % 18.8 % (20.0-40.0); MEAN CELL VOLUME 89.2 fL (80.0-94.0); MEAN CORPUSCULAR HEMOGLOBIN 30.5 pg (27.0-31.0); MEAN CORPUSCULAR HGB CONC 34.2 g/dL (33.0-37.0); MEAN PLATELET VOLUME 8.5 fL (7.2-11.7); MONO # 0.6 K/uL (0.0-0.8); MONO % 9.8 % (0.0-10.0); NRBC % 0.1 % (0.0-2.0); RED CELL DISTRIBUTION WIDTH 12.4 % (11.5-14.5); WHITE BLOOD COUNT 6.6 K/uL (4.8-10.8)
--- NOTE | 2017-05-03 06:58 | CP.PCM.PN ---
Subjective - Date & Time of Evaluation Date of Evaluation: 05/03/17 Time of Evaluation: 06:58 Objective - Vital Signs/Intake and Output Vital Signs (last 24 hours): Temp Pulse Resp BP Pulse Ox 98.6 F 79 20 103/59 L 96 05/03/17 01:00 05/03/17 01:00 05/03/17 01:00 05/03/17 01:00 05/03/17 01:00 Intake and Output: 05/02/17 05/03/17 18:59 06:59 Intake Total 400 500 Output Total 1500 Balance -1100 500 - Medications Medications: Current Medications Docusate Sodium (Colace) 100 mg PO BID [facility] Last Admin: 05/02/17 17:54 Dose: 100 mg Enoxaparin Sodium (Lovenox) 40 mg SC DAILY [facility] Last Admin: 05/02/17 09:28 Dose: 40 mg Famotidine (Pepcid) 20 mg PO BID [facility] Last Admin: 05/02/17 17:54 Dose: 20 mg Ibuprofen (Motrin Tab) 600 mg PO TID PRN PRN Reason: Pain, moderate (4-7) Last Admin: 05/02/17 20:04 Dose: 600 mg Nicotine (Nicoderm Cq) 1 patch TD DAILY [facility] Last Admin: 05/02/17 14:08 Dose: Not Given - Labs Labs: 05/03/17 06:16 05/03/17 06:16 PT 11.1 SECONDS (9.7-12.2) 04/23/17 08:25 INR 1.0 04/23/17 08:25 APTT 26 SECONDS (21-34) 04/23/17 08:25 - Additional Findings Additional findings: - Constitutional Appears: No Acute Distress - Head Exam Head Exam: ATRAUMATIC, NORMAL INSPECTION - Eye Exam Eye Exam: EOMI, Normal appearance - ENT Exam ENT Exam: Mucous Membranes Moist - Respiratory Exam Respiratory Exam: Clear to Ausculation Bilateral, NORMAL BREATHING PATTERN. absent: Rales, Rhonchi, Wheezes, Respiratory Distress - Cardiovascular Exam Cardiovascular Exam: REGULAR RHYTHM, +S1, +S2 - GI/Abdominal Exam GI & Abdominal Exam: Soft, Normal Bowel Sounds. absent: Distended, Firm, Guarding, Tenderness - Extremities Exam Extremities Exam: Tenderness (s/p left and right calcanei ORIF-casts with michelle wrap from knee down to toes. Toes exposed; patient able to move toes and legs; sensation intact) - Neurological Exam Neurological Exam: Alert, Awake, Oriented x3 - Psychiatric Exam Psychiatric exam: Normal Affect, Normal Mood - Skin Skin Exam: Dry, Intact, Normal Color, Warm Assessment and Plan (1) Bilateral calcaneal fractures Status: Acute (2) Tobacco abuse Status: Acute (3) Elevated transaminase level Status: Acute (4) Prophylactic measure Status: Acute - Assessment and Plan (Free Text) Plan: (1) Bilateral calcaneal fractures Assessment and Plan: Foot xray: comminuted fractures of the right and left calcanei with surrounding soft tissue swelling. Ankle xray: comminuted fractures of the right and left calcanei with surrounding soft tissue swelling. Given one dose of Lovenox on 04/24/17. LE CT: comminuted fractures of left and right calcanei, left more severe than right; surrounding soft tissue swelling. left than right ankle mortise intact Podiatry consulted- Dr. Naranjo; help appreciated * Patient s/p left calcaneal ORIF, POD#7 * Patient s/p Right calcaneal ORIF, POD#4 * Continue PT/OT Preop: * CXR: no acute infiltrates; nodular density of left upper lung field, could represent 1st rib artifact or tiny granuloma; suggests repeat in 2 months * EKG: follow up official report * PT 11.1; INR 1.0; PTT 26 * CBC: WBC 14.6; Hgb 14.1, Hct 41.6, Platelets 230 * CMP within normal limits Pain Management: * Discontinued Morphine 1mg IV Q6prn started for pain * Discontinued Tylenol 650mg PO Q6 PRN (mild pain) due to elevated transaminases * Discontinued Toradol 15mg Q6 PRN (moderate pain) due to elevated transaminases * Discontinued Toradol 30mg Q6 PRN (severe pain) due to elevated transaminases Status: Acute (2) Tobacco abuse Assessment and Plan: * Discussed tobacco cessation at length. * Nicoderm patch started. Status: Acute (3) Elevated transaminase level Assessment and Plan: * Discontinued Tylenol and Toradol * Continue to monitor/trend AST/ALT--> improving (4) Prophylactic measure Assessment and Plan: * Anitcoagulation held at this time- plan to go to OR as per podiatry * Was given one dose of Lovenox on 04/24/17 * Was given one dose of Lovenox on 04/26/17 * Was given one dose of Lovenox on 04/27/17 * No SCDs- LE swelling * Pepcid 20mg IV BID * Regular diet * Fall precautions * Incentive spirometer Q1 * PT/OT Status: Acute Disposition: Pending physical therapy and podiatry to determine when patient is stable for discharge. Patient must be able independently transfer from bed to wheelchair.
[2017-05-03] MEDS: Enoxaparin 40 mg Syringe SC SCH (09:44)
--- NOTE | 2017-05-03 11:21 | CP.PCM.PN ---
Subjective - Date & Time of Evaluation Date of Evaluation: 05/03/17 Time of Evaluation: 08:45 - Subjective Subjective: Podiatry Progress Note - Dr. Naranjo 26 year old male patient seen and evaluated at bedside POD#5 right calcaneus ORIF and POD#8 left calcaneus ORIF. Patient hemodynamically stable and NAD. Denies any acute events overnight. Patient reports continued mild, but well controlled, 3/10 pain to bilateral feet, pt is attempting to avoid use of pain medications as much as possible. Patient admits that he has been using the incentive spirometer every hour. Pt states he is progressing well with transition from bed to wheelchair, and with wheelchair use. Denies N/V/F/D/C/SOB /calf pain. Offers no other pedal complaints at this time. Objective - Vital Signs/Intake and Output Vital Signs (last 24 hours): Temp Pulse Resp BP Pulse Ox 98.1 F 90 21 100/62 96 05/03/17 08:19 05/03/17 08:19 05/03/17 08:19 05/03/17 08:19 05/03/17 08:19 Intake and Output: 05/03/17 05/03/17 06:59 18:59 Intake Total 500 Balance 500 - Medications Medications: Current Medications Acetaminophen (Tylenol 325mg Tab) 650 mg PO Q6 PRN PRN Reason: Pain, Mild (1-3) Last Admin: 05/03/17 09:46 Dose: 650 mg Docusate Sodium (Colace) 100 mg PO BID [facility] Last Admin: 05/03/17 09:44 Dose: 100 mg Enoxaparin Sodium (Lovenox) 40 mg SC DAILY [facility] Last Admin: 05/03/17 09:44 Dose: 40 mg Famotidine (Pepcid) 20 mg PO BID [facility] Last Admin: 05/03/17 09:44 Dose: 20 mg Nicotine (Nicoderm Cq) 1 patch TD DAILY [facility] Last Admin: 05/03/17 09:45 Dose: Not Given - Labs Labs: 05/03/17 06:16 05/03/17 06:16 PT 11.1 SECONDS (9.7-12.2) 04/23/17 08:25 INR 1.0 04/23/17 08:25 APTT 26 SECONDS (21-34) 11/26/17 08:25 - Constitutional Appears: Well, Non-toxic, No Acute Distress - Extremities Exam Additional comments: Posterior splints to bilateral LE appear clean/dry/intact. NVSI to distal digits x10 Active ROM noted to digits x10 No pain on palpation of calf b/l - Neurological Exam Neurological Exam: Alert, Awake, Oriented x3 - Psychiatric Exam Psychiatric exam: Normal Affect, Normal Mood Assessment and Plan - Assessment and Plan (Free Text) Assessment: 26 y/o male with bilateral comminuted calcaneal fractures secondary to trauma POD#8 left calcaneal ORIF (DOS: 04/25/17) POD#5 right calcaneal ORIF (DOS: 04/28/17) Plan: Patient seen and evaluated. Discussed with attending, Dr. Naranjo. Pt stable, no complications to bilateral post-op. - Pt to remain NWB to bilaterally lower extremity with use of wheelchair. - Continue transition activity an passive ROM physical therapy. - Posterior splints left intact bilaterally. Noted Toradol and Tylenol d/c due to elevated transaminase. -Pt's pain well controlled inhouse on Ibuprofen. Pt is able to be discharged with OTC Ibuprofen. Continue Lovenox 40mg SC daily for 30 days on outpatient basis. Pt can D/c incentive spiometer. Pt is stable from podiatry standpoint for discharge. Pt to followup in [facility] with Dr. Naranjo weekly on Monday afternoons. Podiatry will continue to follow patient while in house.
--- NOTE | 2017-05-03 12:27 | CP.PCM.DIS ---
<Tamera Le - Last Filed: 05/03/17 17:40> Provider - Provider Date of Admission: 04/23/17 07:51 Attending physician: Nasrin Ho DO Primary care physician: Dr. Gogo Ryder Consults: Podiatry: Dr. Naranjo Time Spent in preparation of Discharge (in minutes): 45 Diagnosis - Discharge Diagnosis (1) Bilateral calcaneal fractures Status: Acute (2) Tobacco abuse Status: Acute (3) Elevated transaminase level Status: Acute Hospital Course - Lab Results Lab Results: Micro Results 04/23/17 15:15 Blood Blood Culture - Final NO GROWTH AFTER 5 DAYS 04/23/17 15:15 Blood Gram Stain - Final TEST NOT PERFORMED 04/23/17 15:45 Blood Blood Culture - Final NO GROWTH AFTER 5 DAYS 04/23/17 15:45 Blood Gram Stain - Final TEST NOT PERFORMED 04/23/17 15:38 Urine Urine Culture - Final Gram Positive Cocci Most Recent Lab Values WBC 6.6 K/uL (4.8-10.8) 05/03/17 06:16 RBC 3.52 Mil/uL (4.40-5.90) L 05/03/17 06:16 Hgb 10.8 g/dL (12.0-18.0) L 05/03/17 06:16 Hct 31.4 % (35.0-51.0) L 05/03/17 06:16 MCV 89.2 fL (80.0-94.0) 05/03/17 06:16 MCH 30.5 pg (27.0-31.0) 05/03/17 06:16 MCHC 34.2 g/dL (33.0-37.0) 05/03/17 06:16 RDW 12.4 % (11.5-14.5) 05/03/17 06:16 Plt Count 516 K/uL (130-400) H 05/03/17 06:16 MPV 8.5 fL (7.2-11.7) 05/03/17 06:16 Neut % (Auto) 67.9 % (50.0-75.0) 05/03/17 06:16 Lymph % (Auto) 18.8 % (20.0-40.0) L 05/03/17 06:16 Terrell % (Auto) 9.8 % (0.0-10.0) 05/03/17 06:16 Eos % (Auto) 2.7 % (0.0-4.0) 05/03/17 06:16 Baso % (Auto) 0.8 % (0.0-2.0) 05/03/17 06:16 Neut # 4.5 K/uL (1.8-7.0) 05/03/17 06:16 Lymph # 1.2 K/uL (1.0-4.3) 05/03/17 06:16 Terrell # 0.6 K/uL (0.0-0.8) 05/03/17 06:16 Eos # 0.2 K/uL (0.0-0.7) 05/03/17 06:16 Baso # 0.1 K/uL (0.0-0.2) 05/03/17 06:16 Neutrophils % (Manual) 78 % (50-75) H 04/29/17 06:30 Band Neutrophils % 3 % (0-2) H 04/29/17 06:30 Lymphocytes % (Manual) 7 % (20-40) L 04/29/17 06:30 Reactive Lymphs % 1 % (0-0) H 04/29/17 06:30 Monocytes % (Manual) 11 % (0-10) H 04/29/17 06:30 Eosinophils % (Manual) 3 % (0-4) 04/24/17 08:00 Platelet Estimate Normal (NORMAL) 04/29/17 06:30 RBC Morphology Normal 04/24/17 08:00 PT 11.1 SECONDS (9.7-12.2) 04/23/17 08:25 INR 1.0 04/23/17 08:25 APTT 26 SECONDS (21-34) 04/23/17 08:25 Sodium 139 mmol/L (132-148) 05/03/17 06:16 Potassium 4.6 mmol/L (3.6-5.2) 05/03/17 06:16 Chloride 101 mmol/L (98-107) 05/03/17 06:16 Carbon Dioxide 31 mmol/L (22-30) H 05/03/17 06:16 Anion Gap 13 (10-20) 05/03/17 06:16 BUN 9 mg/dL (9-20) 05/03/17 06:16 Creatinine 0.8 mg/dL (0.8-1.5) 05/03/17 06:16 Est GFR ( Amer) > 60 05/03/17 06:16 Est GFR (Non-Af Amer) > 60 05/03/17 06:16 Random Glucose 99 mg/dL (75-110) 05/03/17 06:16 Calcium 8.5 mg/dl (8.6-10.4) L 05/03/17 06:16 Total Bilirubin 0.5 mg/dL (0.2-1.3) 05/03/17 06:16 AST 52 U/L (17-59) 05/03/17 06:16 ALT 132 U/L (21-72) H 05/03/17 06:16 Alkaline Phosphatase 72 U/L (38-126) 05/03/17 06:16 Total Protein 6.4 g/dL (6.3-8.3) 05/03/17 06:16 Albumin 3.6 g/dL (3.5-5.0) 05/03/17 06:16 Globulin 2.8 gm/dL (2.2-3.9) 05/03/17 06:16 Albumin/Globulin Ratio 1.3 (1.0-2.1) 05/03/17 06:16 Urine Color Straw (YELLOW) 04/23/17 15:41 Urine Clarity Clear (Clear) 04/23/17 15:41 Urine pH 7.0 (5.0-8.0) 04/23/17 15:41 Ur Specific [place] 1.008 (1.003-1.030) 04/23/17 15:41 Urine Protein Negative mg/dL (NEGATIVE) 04/23/17 15:41 Urine Glucose (UA) 2+ mg/dL (Normal) H 04/23/17 15:41 Urine Ketones Negative mg/dL (NEGATIVE) 04/23/17 15:41 Urine Blood Negative (NEGATIVE) 04/23/17 15:41 Urine Nitrate Negative (NEGATIVE) 04/23/17 15:41 Urine Bilirubin Negative (NEGATIVE) 04/23/17 15:41 Urine Urobilinogen Normal mg/dL (0.2-1.0) 04/23/17 15:41 Ur Leukocyte Esterase Neg Daf[place]/uL (Negative) 04/23/17 15:41 - Hospital Course Hospital Course: CC: bilateral ankle pain HPI: Patient is a 26 year old with no past medical history, who presents to the ED with bilateral ankle pain and swelling. The patient reports he was with friends, rushing out of the house and as he was going down the stairs started to fall and landed on both feet. He reports he landed on both feet equally, and denies falling on any other body part. He reports he fell about 5-6 feet. His friends picked him him and took him back in the house. Patient took two Advil and then his friends drove him to the hospital. Currently the patient reports the pain is a 4-5/10 and that the Advil he took and the Tylenol he was given in the ED helped. Patient denies tingling and numbness in his feet, ankles, and lower extremities. Patient reports he can move his ankles, feet, and toes, but cannot stand due to the pain. Patient denies having chest pain, abdominal pain, shortness of breath, nausea, vomiting, fevers, headaches, dizziness, and leg pain above his ankles. PMHx: denies SurgHx: elbow fracture in kindergarten FamHx: father had "tooth cancer" SocHx: socially drinks (beer); smoke 3 cigarettes daily for 2 years; lives with friends in [place]; student Allergies: NKDA Medications: denies Hospital Course: Patient was admitted to the hospital on 04/23/2017 after he presented to the ED with bilateral ankle pain and swelling. Initial testing done includes a chest xray which showed no acute infiltrates, EKG and blood work with no significant findings. Patient had a foot and ankle xray which revealed comminuted fractures of right and left calcanei, with surrounding soft tissue swelling. A lower extremity CT scan also confirmed those findings. Podiatry evaluated patient and he was taken to the OR for two open reduction and internal fixation procedures. The first procedure was on 04/25 which addressed the left fracture and the second one was on 04/28 which addressed the right fracture. Patient tolerated both procedures well. He was reevaluated and examined daily to ensure that the patients pain was managed and he was not experiencing any new complications. Patient was evaluated by physical therapy to assess his ability to ambulate and use of a wheelchair. Patient was optimized for discharge on 06, POD#8 left calcaneal ORIF and POD#5 right calcaneal ORIF. Patient was instructed to follow up on a Monday with Dr. Naranjo at [facility] [place]- Podiatry within 1-2 weeks of discharge. This is a brief summary of the hospital course. If more information is needed, please refer to the EMR. Discharge Exam - Head Exam Head Exam: ATRAUMATIC, NORMAL INSPECTION, NORMOCEPHALIC - Eye Exam Eye Exam: EOMI, Normal appearance - ENT Exam ENT Exam: Mucous Membranes Moist - Respiratory Exam Respiratory Exam: Clear to PA & Lateral, NORMAL BREATHING PATTERN, UNREMARKABLE. absent: Rales, Rhonchi, Wheezes, Respiratory Distress - Cardiovascular Exam Cardiovascular Exam: REGULAR RHYTHM, +S1, +S2 - GI/Abdominal Exam GI & Abdominal Exam: Normal Bowel Sounds, Soft, Unremarkable. absent: Distended , Firm, Tenderness - Extremities Exam Additional comments: s/p left and right calcanei ORIF-casts with michelle wrap from knee down to toes. Toes exposed; patient able to move toes and legs; sensation intact - Neurological Exam Neurological exam: Alert, Oriented x3 - Psychiatric Exam Psychiatric exam: Normal Affect, Normal Mood - Skin Skin Exam: Dry, Intact, Normal Color, Warm Discharge Plan - Discharge Medications Prescriptions: Enoxaparin [Lovenox] 40 mg SC DAILY 21 Days #21 syr - Follow Up Plan Condition: STABLE Disposition: HOME/ ROUTINE Instructions: Enoxaparin (By injection), Calcaneal Fracture (DC) Additional Instructions: Patient is stable for discharge to home after patient receives bed commode to take home and wheelchair arrives at home. Patient may take [id number] Tylenol every 6 hours as needed for pain . Patient must take new medication as prescribed: Lovenox 40mg SC daily- inject 40mg of Lovenox subcutaneously daily for 21 days. Patient must not bear weight for 6-8 weeks. Patient must follow up with [facility], Dr. Naranjo, within 1-2 weeks of discharge. Patient may make appointment on Mondays with Dr. Naranjo in the [facility] at [facility]. Patient must follow up with their PMD, Dr. Gogo Ryder, within 1-2 weeks of discharge. If symptoms reoccur or worsen, patient should return to the ED. Referrals: [facility] at [facility] [Outside] <Nasrin Ho V - Last Filed: 05/03/17 18:47> Provider - Provider Date of Admission: 04/23/17 07:51 Attending physician: Nasrin Ho DO [place] Hospital Course - Lab Results Lab Results: Micro Results 04/23/17 15:15 Blood Blood Culture - Final NO GROWTH AFTER 5 DAYS 04/23/17 15:15 Blood Gram Stain - Final TEST NOT PERFORMED 04/23/17 15:45 Blood Blood Culture - Final NO GROWTH AFTER 5 DAYS 04/23/17 15:45 Blood Gram Stain - Final TEST NOT PERFORMED 04/23/17 15:38 Urine Urine Culture - Final Gram Positive Cocci Most Recent Lab Values WBC 6.6 K/uL (4.8-10.8) 05/03/17 06:16 RBC 3.52 Mil/uL (4.40-5.90) L 05/03/17 06:16 Hgb 10.8 g/dL (12.0-18.0) L 05/03/17 06:16 Hct 31.4 % (35.0-51.0) L 05/03/17 06:16 MCV 89.2 fL (80.0-94.0) 05/03/17 06:16 MCH 30.5 pg (27.0-31.0) 05/03/17 06:16 MCHC 34.2 g/dL (33.0-37.0) 05/03/17 06:16 RDW 12.4 % (11.5-14.5) 05/03/17 06:16 Plt Count 516 K/uL (130-400) H 05/03/17 06:16 MPV 8.5 fL (7.2-11.7) 05/03/17 06:16 Neut % (Auto) 67.9 % (50.0-75.0) 05/03/17 06:16 Lymph % (Auto) 18.8 % (20.0-40.0) L 05/03/17 06:16 Terrell % (Auto) 9.8 % (0.0-10.0) 05/03/17 06:16 Eos % (Auto) 2.7 % (0.0-4.0) 05/03/17 06:16 Baso % (Auto) 0.8 % (0.0-2.0) 05/03/17 06:16 Neut # 4.5 K/uL (1.8-7.0) 05/03/17 06:16 Lymph # 1.2 K/uL (1.0-4.3) 05/03/17 06:16 Terrell # 0.6 K/uL (0.0-0.8) 05/03/17 06:16 Eos # 0.2 K/uL (0.0-0.7) 05/03/17 06:16 Baso # 0.1 K/uL (0.0-0.2) 05/03/17 06:16 Neutrophils % (Manual) 78 % (50-75) H 04/29/17 06:30 Band Neutrophils % 3 % (0-2) H 04/29/17 06:30 Lymphocytes % (Manual) 7 % (20-40) L 04/29/17 06:30 Reactive Lymphs % 1 % (0-0) H 04/29/17 06:30 Monocytes % (Manual) 11 % (0-10) H 04/29/17 06:30 Eosinophils % (Manual) 3 % (0-4) 04/24/17 08:00 Platelet Estimate Normal (NORMAL) 04/29/17 06:30 RBC Morphology Normal 04/24/17 08:00 PT 11.1 SECONDS (9.7-12.2) 04/23/17 08:25 INR 1.0 04/23/17 08:25 APTT 26 SECONDS (21-34) 04/23/17 08:25 Sodium 139 mmol/L (132-148) 05/03/17 06:16 Potassium 4.6 mmol/L (3.6-5.2) 05/03/17 06:16 Chloride 101 mmol/L (98-107) 05/03/17 06:16 Carbon Dioxide 31 mmol/L (22-30) H 05/03/17 06:16 Anion Gap 13 (10-20) 05/03/17 06:16 BUN 9 mg/dL (9-20) 05/03/17 06:16 Creatinine 0.8 mg/dL (0.8-1.5) 05/03/17 06:16 Est GFR ( Amer) > 60 05/03/17 06:16 Est GFR (Non-Af Amer) > 60 05/03/17 06:16 Random Glucose 99 mg/dL (75-110) 05/03/17 06:16 Calcium 8.5 mg/dl (8.6-10.4) L 05/03/17 06:16 Total Bilirubin 0.5 mg/dL (0.2-1.3) 05/03/17 06:16 AST 52 U/L (17-59) 05/03/17 06:16 ALT 132 U/L (21-72) H 05/03/17 06:16 Alkaline Phosphatase 72 U/L (38-126) 05/03/17 06:16 Total Protein 6.4 g/dL (6.3-8.3) 05/03/17 06:16 Albumin 3.6 g/dL (3.5-5.0) 05/03/17 06:16 Globulin 2.8 gm/dL (2.2-3.9) 05/03/17 06:16 Albumin/Globulin Ratio 1.3 (1.0-2.1) 05/03/17 06:16 Urine Color Straw (YELLOW) 04/23/17 15:41 Urine Clarity Clear (Clear) 04/23/17 15:41 Urine pH 7.0 (5.0-8.0) 04/23/17 15:41 Ur Specific [place] 1.008 (1.003-1.030) 04/23/17 15:41 Urine Protein Negative mg/dL (NEGATIVE) 04/23/17 15:41 Urine Glucose (UA) 2+ mg/dL (Normal) H 04/23/17 15:41 Urine Ketones Negative mg/dL (NEGATIVE) 04/23/17 15:41 Urine Blood Negative (NEGATIVE) 04/23/17 15:41 Urine Nitrate Negative (NEGATIVE) 04/23/17 15:41 Urine Bilirubin Negative (NEGATIVE) 04/23/17 15:41 Urine Urobilinogen Normal mg/dL (0.2-1.0) 04/23/17 15:41 Ur Leukocyte Esterase Neg Daf[place]/uL (Negative) 04/23/17 15:41 Attending/Attestation - Attestation I have personally seen and examined this patient.: Yes I have fully participated in the care of the patient.: Yes I have reviewed all pertinent clinical information, including history, physical exam and plan: Yes Notes (Text): Patient seen, examined, and case discussed with day-time resident. Patient seen this morning, spoke with physical and occupational therapy. Patient is stable from their standpoint. Strong recommendation for both bedside commode and wheelchair with movable feet. I have also discussed with case management as well, who reports patient states his friends will help him get these items and his friend who is a physical therapist will help him at home. Patient will need DVT ppx of Lovenox 40mg subqdaily for total of 30 days per podiatry. Forms and prescription given to the nurse to discount medications from the [facility]. Patient will need teaching prior to discharge to be able to give himself Lovenox subcutaneously. I have discussed with patient's primary, Dr Gogo Ryder in regards to plans for his patient, who is aware and happy. patient strongly advised to not be nonweightbearing for 6-8 weeks which is approximately end of May. Patient reports he will not drink, and i advised him to not drink alcohol nor smoke while he is recovering from his recent surgery. Discharge order and discharge instructions discussed day-time resident. Patient is medically stable for discharge. Discharge Diagnoses: (1) Bilateral calcaneal fractures Assessment and Plan: Foot xray: comminuted fractures of the right and left calcanei with surrounding soft tissue swelling. Ankle xray: comminuted fractures of the right and left calcanei with surrounding soft tissue swelling. LE CT: comminuted fractures of left and right calcanei, left more severe than right; surrounding soft tissue swelling. left than right ankle mortise intact Podiatry consulted- Dr. Naranjo; help appreciated * Patient s/p left calcaneal ORIF, POD#8 * Patient s/p Right calcaneal ORIF, POD#7 * Continue PT/OT Preop: * CXR: no acute infiltrates; nodular density of left upper lung field, could represent 1st rib artifact or tiny granuloma; suggests repeat in 2 months * EKG: follow up official report * PT 11.1; INR 1.0; PTT 26 * CBC: WBC 14.6; Hgb 14.1, Hct 41.6, Platelets 230 * CMP within normal limits Patient to complete DVT ppx: lovenox 40mg subqdaily for 30 days post-operative per podiatry. Forms given to [facility] to help discount cost. (2) Tobacco abuse Assessment and Plan: * Discussed tobacco cessation at length. * Nicoderm patch started. * patient reports he will not smoke. He is fully aware of the risks. Status: Acute (3) Elevated transaminase level Assessment and Plan: * Discontinued Tylenol and Toradol * Continue to monitor/trend AST/ALT--> improving (4) Prophylactic measure Assessment and Plan: * Lovenox 40mg subq daily post-operatively per podiatry for 30 days Status: Acute
[2017-05-03] MEDS ORDERED: Influenza Vaccine 60 mcg/0.5 mL SYR (4YR UP) IM ONE ×2 (13:30→14:15)
[2017-05-03] MEDS ORDERED: Pneumoc 13 Val Conjugate Vaccine Inj IM ONE (13:30)
[2017-05-03] MEDS ORDERED: Pneumococcal 23-Valent Vaccine IM ONE (14:12)
[2017-05-03 15:52] VITALS: BP 105/78; PULSE 92; RESP 20; TEMP 98.6; O2SAT 98
== END 2017-05-03 20:30 | disposition home or self-care (01) | DRG 504 ==
LOC: C.ER 04:29 → C.9E 07:51 → C.3T 17:20
PROVIDERS: ADMIT Hospitalist; ATTEND Hospitalist
PROC: 3E0T3BZ Introduction of Anesthetic Agent into Peripheral Nerves and Plexi, Percutaneous Approach (ICD-10-PCS; 2017-04-25)
PROC: 0QSM04Z Reposition Left Tarsal with Internal Fixation Device, Open Approach (ICD-10-PCS; principal; 2017-04-25 07:45)
PROC: 0QSL04Z Reposition Right Tarsal with Internal Fixation Device, Open Approach (ICD-10-PCS; 2017-04-28)
PROC: 3E0T3BZ Introduction of Anesthetic Agent into Peripheral Nerves and Plexi, Percutaneous Approach (ICD-10-PCS; 2017-04-28)
DX: S92.012A Displaced fracture of body of left calcaneus, initial encounter for closed fracture (principal); S92.011A Displaced fracture of body of right calcaneus, initial encounter for closed fracture; D62 Acute posthemorrhagic anemia; G89.18 Other acute postprocedural pain; G89.11 Acute pain due to trauma; D72.829 Elevated white blood cell count, unspecified; R74.0 Nonspecific elevation of levels of transaminase and lactic acid dehydrogenase [LDH]; F17.210 Nicotine dependence, cigarettes, uncomplicated; W10.8XXA Fall (on) (from) other stairs and steps, initial encounter; Y92.008 Other place in unspecified non-institutional (private) residence as the place of occurrence of the external cause